=== PATIENT | female | born 1940 | race Caucasian/White ===

== ENCOUNTER 2017-08-04 12:01 | Observation (INO) | payer MEDICARE ==
[2017-08-04] MEDS ORDERED: 0.9 % SODIUM CHLORIDE 1,000 ML BAG IV ONE (12:23)
--- NOTE | 2017-08-04 12:25 | Emergency Department Record ---
History of Present Illness - General Chief Complaint: Syncope Stated Complaint: YASEMIN/COLOR BAD Time Seen by Provider: 08/04/17 12:10 Source: Patient, Family Mode of Arrival: EMS Limitations: No limitations - History of Present Illness Initial Comments: The patient is here due to becoming SOB and weak and almost passing out at a family function 30 minutes ago. Per her family she was well prior and then developed weakness, SOB, became pale and was felt to have a very slow pulse. At that time she felt like she was going to pass out and she was not answering questions well. EMS was called and found the patient hemodynamically stable. Presently she denies any CP, SOB, or SEPULVEDA but just does not feel right. There have been no recent illesses except possibly a mild cold. MD Complaint: Almost passed out Onset/Timin -: Minutes(s) Prodromal Symptoms: Lightheaded, Shortness of breath, Vertigo Injuries Sustained Associated with Event: None Current Symptoms: Other History: Previous syncopal episode Treatments Prior to Arrival: None - Related Data Home Medications Medication Instructions Recorded Confirmed Last Taken Atorvastatin Calcium 40 mg PO QHS 08/04/17 08/04/17 Unknown Enalapril Maleate [Vasotec] 10 mg PO DAILY 08/04/17 08/04/17 Unknown Ergocalciferol (Vitamin D2) 50,000 unit PO WEEKLY 08/04/17 08/04/17 Unknown [Vitamin D2] Glipizide 15 mg PO BID 08/04/17 08/04/17 Unknown Levothyroxine Sodium [Synthroid] 25 mcg PO DAILY 08/04/17 08/04/17 Unknown Metformin HCl 500 mg PO TID 08/04/17 08/04/17 Unknown Omeprazole 20 mg PO DAILY 08/04/17 08/04/17 Unknown Simvastatin [Zocor] 80 mg PO QHS 08/04/17 08/04/17 Unknown Allergies Allergy/AdvReac Type Severity Reaction Status Date / Time codeine Allergy Unknown Unverified 09/14/13 10:08 gabapentin Allergy Unknown Unverified 09/14/13 10:08 Nitrate Analogues Allergy Unknown Unverified 09/14/13 10:08 Allergies: Allergy Unknown Uncoded 09/14/13 10:08 Travel Screening - Travel/Exposure Within Last 30 Days Have you traveled within the last 30 days?: No Review of Systems Constitutional: Denies: Chills, Fever Eyes: Denies: Eye discharge ENT: Reports: Congestion Respiratory: Denies: Cough, Dyspnea Cardiovascular: Denies: Arrhythmia, Chest pain Endocrine: Reports: Fatigue Gastrointestinal: Denies: Abdominal pain Genitourinary: Denies: Dysuria Musculoskeletal: Denies: Arthralgia Past Medical History - SOCIAL HISTORY Smoking Status: Never smoker Alcohol Use: None Drug Use: None - RESPIRATORY Hx Respiratory Disorders: No - CARDIOVASCULAR Hx Cardio Disorders: Yes Hx Edema: Yes (BLE) Hx Hypertension: Yes Comment:: high cholesterol - NEURO Hx Neuro Disorders: Yes Hx Dizziness: Yes (orthostatic hypotension) Hx Headaches: Yes (left adventism) Hx of Migraines: Yes (occular migraines) 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) - GI Hx GI Disorders: Yes Hx Reflux: Yes Comment:: Hx of gastric bypass - Hx Genitourinary Disorders: Yes Hx Bladder Problem: Yes (on ditropan had bladder scan) - ENDOCRINE Hx Endocrine Disorders: Yes Hx Thyroid Disease: Yes - MUSCULOSKELETAL Hx Musculoskeletal Disorders: Yes Hx Arthritis: Yes (RA) Hx Osteoporosis: Yes - PSYCH Hx Psych Problems: Yes Hx Anxiety: Yes Hx Depression: Yes - HEMATOLOGY/ONCOLOGY Hx Hematology/Oncology Disorders: Yes Hx Blood Transfusions: Yes (5+ years ago) Family Medical History Any Significant Family History?: Yes Hx Cancer: Father, Brother/Sister *Cancer Comment: brain, lung Hx Diabetes: Mother Hx Seizures: Brother/Sister Physical Exam - General General Appearance: Alert, Oriented x3, Cooperative, No acute distress - Head Head exam: Atraumatic, Normocephalic - Eye Eye exam: Normal appearance, PERRL, EOMI - ENT Throat exam: Normal inspection. negative: Tonsillar erythema, Tonsillar exudate - Neck Neck exam: Normal inspection, Full ROM. negative: Tenderness - Respiratory Respiratory exam: Normal lung sounds bilaterally. negative: Respiratory distress - Cardiovascular Cardiovascular Exam: Regular rate, Normal rhythm, Normal heart sounds - GI/Abdominal GI/Abdominal exam: Soft, Normal bowel sounds. negative: Tenderness - Extremities Extremities exam: Normal inspection, Full ROM, Normal capillary refill. negative: Tenderness - Neurological Neurological exam: Alert, Oriented X3, Reflexes normal. negative: Altered, Motor sensory deficit Course Vital Signs 08/04/17 12:06 Temperature 98.3 F Pulse Rate 111 H Respiratory 30 H Rate Blood Pressure 181/106 Pulse Ox 100 - Reevaluation(s) Reevaluation #1: The patient is doing very at this time. She denies any CP, SOB, YASEMIN, sweating or headache. I explained to her that her workup is normal at this time but that I feel it is important to monitor her at least overnight. The patient agrees to the plan. I did also discuss the case with Dr. Hunter and he does accept the patient for admission. At this time the patient is A and O x 3 and motor and sensory exams are normal in the upper and lower extremities. She is smiling and pleasant and answering all questions appropriately. 08/04/17 13:31 08/04/17 15:13 Medical Decision Making - Data Complexity MDM Data: Labs Ordered and/or Reviewed, X-Ray Ordered and/or Reviewed, EKG Ordered and/or Reviewed - Lab Data Result diagrams: 08/04/17 12:00 08/04/17 12:00 - EKG Data -: EKG Interpreted by Me EKG: No Acute Changes, Unchanged From Previous - Radiology Data Radiology results: Report reviewed (CXR: Neg Head CT: Neg for any acute changes.) Disposition Disposition: Admit Clinical Impression: Syncope Qualifiers: Syncope type: unspecified Qualified Code(s): R55 - Syncope and collapse Disposition: Still a Patient at [facility] Decision to Admit: Admit from ER Decision to Admit Date: 08/04/17 Decision to Admit Time: 13:43 Accepting Physician: Elsa Time Discussed w/Accepting Physician: 13:43 Condition: (2) Stable Time of Disposition: 13:43 Quality - Quality Measures Quality Measures: N/A - Blood Pressure Screening View Details: Yes Does Patient Have Any of the Following: Active Dx of HTN Blood Pressure Classification: Hypertensive Reading Systolic Measurement: 181 Diastolic Measurement: 106 Screening for High Blood Pressure: Patient Exclusion, Hx of HTN [[id number]]
[2017-08-04 12:28] LABS: BASO % 0.2 % (0-6); EOS % 4.6 % (0-6); GRAN % 63.3 % (47-80); HEMATOCRIT 34.5 % (35.0-47.0); HEMOGLOBIN 10.7 gm/dl (11.6-16.0); LYMPH % 21.9 % (16-45); MEAN CELL VOLUME 95.6 fl (81-97); MEAN CORPUSCULAR HEMOGLOBIN 29.6 pg (27-33); MEAN PLATELET VOLUME 10.3 fl (7.4-10.4); PLATELET COUNT 298 K/uL (130-400); RED BLOOD COUNT 3.61 M/uL (3.80-5.40); RED CELL DISTRIBUTION WIDTH 15.8 % (11.5-14.5); WHITE BLOOD COUNT W/O DIFF 9.7 K/uL (4.2-12.2)
[2017-08-04 12:39] LABS: PARTIAL THROMBOPLASTIN TIME 23.9 SECONDS (24.5-39.1); PROTHROMBIN TIME (PATIENT) 10.3 SECONDS (9.5-12.1)
[2017-08-04 13:03] LABS: BLOOD UREA NITROGEN 27 mg/dL (8-23); CREATININE 1.4 mg/dL (0.5-0.9); EST GLOMERULAR FILTRATION RATE 39 mL/min; GLUCOSE,RANDOM 232 mg/dL (74-109)
[2017-08-04 13:05] LABS: CKMB 1.7 ng/mL (<3.77)
[2017-08-04 13:19] LABS: CREATINE PHOSPHOKINASE 75 U/L (26-192)
[2017-08-04 18:39] LABS: CKMB 1.7 ng/mL (<3.77)
[2017-08-04] MEDS: GLIPIZIDE 5 MG TABLET PO SCH (18:43)
--- NOTE | 2017-08-04 19:28 | RADIOLOGY REPORT ---
EXAM: CHEST 2 VIEWS HISTORY: CHEST PAIN. TECHNIQUE: Frontal and lateral views of the chest. COMPARISON: 11/02/08 chest. FINDINGS: The heart size is normal. Mild ectasia thoracic aorta. Surgical clips left upper quadrant. Osteopenia. Lungs are clear. No pneumothorax. IMPRESSION: NO ACUTE CARDIOPULMONARY PROCESS. JOB NUMBER: [id number] MTDD
[2017-08-04] MEDS ORDERED: ENOXAPARIN 30 MG/0.3 ML SYR SQ SCH (19:30)
--- NOTE | 2017-08-04 19:31 | CT SCAN REPORT ---
EXAM: CT SCAN HEAD WO CONTRAST HISTORY: WEAKNESS. TECHNIQUE: CT brain without. COMPARISON: None. FINDINGS: The globes are intact. Left sphenoid sinusitis. No displaced or depressed skull fracture. No intra or extraaxial hemorrhage. CT is limited for the evaluation of acute infarct. No CT evidence for large or territorial acute infarct. No mass or midline shift. Age-appropriate atrophy. Small vessel ischemic change. Dural-based calcifications. 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 LEFT SPHENOID SINUSITIS. JOB NUMBER: [id number] [facility]
[2017-08-04] MEDS: ENALAPRIL 5 MG TABLET PO SCH ×2 (20:35→23:54)
[2017-08-04] MEDS: SIMVASTATIN 20 MG TABLET PO SCH ×2 (20:36→23:54)
[2017-08-04] MEDS: LOPERAMIDE 2 MG CAPSULE PO PRN (20:48)
[2017-08-04] MEDS ORDERED: Non-Formulary MISC (Atorvastatin Calcium [Atorvastatin Calcium] 40 MG) PO SCH (22:00)
[2017-08-05] MEDS: ACETAMINOPHEN 325 MG TAB PO PRN ×3 (02:37→14:32)
[2017-08-05] MEDS: LOPERAMIDE 2 MG CAPSULE PO PRN (03:54)
[2017-08-05 06:49] LABS: BASO % 0.1 % (0-6); EOS % 4.8 % (0-6); GRAN % 60.2 % (47-80); HEMOGLOBIN 8.4 gm/dl (11.6-16.0); LYMPH % 25.1 % (16-45); MEAN CELL VOLUME 96.6 fl (81-97); MEAN PLATELET VOLUME 9.6 fl (7.4-10.4); MONO % 9.8 % (0-9); PLATELET COUNT 254 K/uL (130-400); RED CELL DISTRIBUTION WIDTH 15.6 % (11.5-14.5); WHITE BLOOD COUNT W/O DIFF 6.8 K/uL (4.2-12.2)
[2017-08-05 06:51] LABS: MEAN CORPUSCULAR HEMOGLOBIN 28.9 pg (27-33)
[2017-08-05] MEDS ORDERED: LEVOTHYROXINE SODIUM 25 MCG TABLET PO SCH (07:00)
[2017-08-05] MEDS ORDERED: PANTOPRAZOLE SODIUM 40 MG TABLET PO SCH (07:00)
[2017-08-05 07:03] LABS: BLOOD UREA NITROGEN 28 mg/dL (8-23); CREATININE 1.3 mg/dL (0.5-0.9); EST GLOMERULAR FILTRATION RATE 42 mL/min; GLUCOSE,RANDOM 143 mg/dL (74-109)
[2017-08-05 07:09] LABS: CKMB 1.4 ng/mL (<3.77)
[2017-08-05] MEDS ORDERED: PATIENT OWN MED: OMEPRAZOLE 20 MG PO SCH (09:30)
[2017-08-05] MEDS ORDERED: PATIENT OWN MED: LEVOTHYROXINE 25 MCG PO SCH (09:30)
[2017-08-05] MEDS ORDERED: ENALAPRIL 5 MG TABLET PO SCH (10:00)
[2017-08-05 10:15] LABS: FERRITIN 46.06 ng/mL (13-150)
[2017-08-05] MEDS: GLIPIZIDE 5 MG TABLET PO SCH (14:04)
[2017-08-05 14:27] LABS: HEMATOCRIT 28.4 % (35.0-47.0); HEMOGLOBIN 8.5 gm/dl (11.6-16.0)
--- NOTE | 2017-08-05 14:58 | Discharge Note ---
VTE H&P Assessment - Risk for VTE Risk for VTE: Yes Risk Level: Very Low Risk Assessment Date: 08/04/17 Risk Assessment Time: 16:00 VTE Orders Placed or Will Be Placed: Yes VTE Reason for No Prophylaxis: Contraindicated Discharge Medications - Discharge Medications Prescriptions: Ascorbic Acid [Vitamin C] 1,000 mg PO DAILY #100 tab Ferrous Sulfate [Iron] 325 mg PO DAILY #100 tablet Home Medications: Ambulatory Orders Atorvastatin Calcium 40 mg PO QHS 08/04/17 [Last Taken Unknown] Enalapril Maleate [Vasotec] 10 mg PO DAILY 08/04/17 [Last Taken Unknown] Ergocalciferol (Vitamin D2) [Vitamin D2] 50,000 unit PO WEEKLY 08/04/17 [Last Taken Unknown] Glipizide 15 mg PO BID 08/04/17 [Last Taken Unknown] Levothyroxine Sodium [Synthroid] 25 mcg PO DAILY 08/04/17 [Last Taken Unknown] Metformin HCl 500 mg PO TID 08/04/17 [Last Taken Unknown] Omeprazole 20 mg PO DAILY 08/04/17 [Last Taken Unknown] Ascorbic Acid [Vitamin C] 1,000 mg PO DAILY #100 tab 08/05/17 [Last Taken Unknown] Ferrous Sulfate [Iron] 325 mg PO DAILY #100 tablet 08/05/17 [Last Taken Unknown] Discharge Note - Date Date of Discharge Note: 08/05/17 Disposition: Home, Self-Care Condition: (1) Good Additional Instructions: Specialty clinic will call you tomorrow with instructions for your outpatient EGD and Colonoscopy. follow up with DR. Hunter in 7 days next august 12 please wear a holter monitor for 24 hours will schedule outpatient to See GI for EGD and colonoscopy start ferrous sulfate 325 mg once a day start vit c 1000 once aday Referrals: Carloz Hunter D.O. [Primary Care Provider] - Forms: Patient Portal Access Activity at Discharge: Increase Activity as Tolerated Diet at Discharge: Diabetic Diet
[2017-08-05] MEDS ORDERED: FERROUS SULFATE 325 MG TAB PO SCH (15:15)
[2017-08-05] MEDS ORDERED: ASCORBIC ACID 500 MG TAB PO SCH (15:15)
[2017-08-05] MEDS ORDERED: SIMVASTATIN 80 MG PO SCH (22:00)
[2017-08-05] MEDS ORDERED: ENALAPRIL 10 MG PO SCH (22:00)
--- NOTE | 2017-08-06 07:10 | History and Physical Report ---
DATE: 08/04/2017 CHIEF COMPLAINT: Near syncope. HISTORY OF PRESENT ILLNESS: This 76-year-old female was getting ready to eat breakfast on Saturday morning about 11 or 10 o'clock in the morning. They were praying. She got lightheadedness, dizzy, almost passed out from a sitting position. EMS was called. She never lost consciousness. She was transported to the hospital in stable vital conditions. Her sugar was checked by EMS which was okay and she was evaluated by Dr. Escalona and she was at her baseline. Dr. Escalona was concerned about a cardiac arrhythmia and put her in the hospital for serial cardiac enzymes and EKG. The cardiac enzymes have been negative. However, hemoglobin dropped to 8.4 from 10.7 and she did have a low sugar reaction of about 50 last night about 2 a.m. Had crackers and it came up to 117. She has had 3 bouts of diarrhea since she got into the hospital here. This may be a vasovagal syncope from diarrhea. However, with the dropping hemoglobin, I checked her stool for blood this morning. Will obtain a GI consult. PAST MEDICAL HISTORY: Diabetes mellitus type 2, hypercholesterolemia, GERD, hypothyroidism. PAST SURGICAL HISTORY: Gastric bypass in 1982, partial hysterectomy, abdominoplasty, left eye symptoms, EGD, colonoscopy, bladder sling in the past. MEDICATIONS: 1. Metformin 500 mg t.i.d. 2. Glipizide 15 mg b.i.d. 3. Omeprazole 20 mg daily. 4. Simvastatin 80 mg at h.s. 5. Vitamin D3, 50,000 units weekly. 6. Enalapril 10 mg daily. 7. Atorvastatin 40 mg at h.s. 8. Levothyroxine 25 mcg daily. There is some confusion in her medication because she has 2 cholesterol medications which I do not think is what she is taking right now. We will pull her medication sheets from the office. ALLERGIES: CODEINE, GABAPENTIN, NITRATE ANALOGS. FAMILY/PSYCHOSOCIAL HISTORY: Unremarkable. Never smoked. No alcohol or drug use. REVIEW OF SYSTEMS: HEENT: No upper respiratory infection symptoms, cough, cold, or congestion. Cardiovascular: No chest pain, palpitations, or arrhythmia. Respiratory: No cough, cold, or congestion. Gastrointestinal: She has had 3 bouts of diarrhea since admission to the hospital. She does have some left-sided abdominal pain. No vomiting. Genitourinary: No dysuria, hematuria, frequency, or burning on urination. Musculoskeletal: No joint or bone abnormalities. She has arthritis in multiple joints. Neurological: No CVA, paralysis, or paresthesias. Gynecological: No lumps in her breasts or abnormal vaginal bleeding. Endocrine: She has diabetes type 2 and hypothyroidism. Integument: No rash, ulcers, change in moles, or yellow skin. PHYSICAL EXAMINATION: VITALS: Height 5 feet, weight 181 pounds. Temperature 98, pulse 76, blood pressure 135/70, respiratory rate 18, pulse ox 95%. HEENT: Pupils are equal, round, and reactive to light and accommodation. Extraocular muscles are intact. Throat is clear. Nose is clear. Tympanic membranes are schmitt. NECK: Supple. No jugular venous distention. No hepatojugular reflux. No carotid bruits. Thyroid is smooth. CARDIOVASCULAR: Regular rate and rhythm without murmurs, clicks, rubs, or gallops. RESPIRATORY: Clear to auscultation and percussion. ABDOMEN: Soft, nontender. Some tenderness in the left side of the abdomen. No rebound or rigidity. EXTREMITIES: No pitting edema. No cyanosis, no clubbing. Full range of motion. Peripheral pulses are good. BREASTS: Deferred. GYNECOLOGICAL: Exam deferred. RECTAL: Brown stool, loose, on examining glove. Hemoccult sent to the lab. GENITALIA: Normal female genitalia. NEUROLOGIC: Cranial nerves II-XII intact. No gross defects. Sensation normal, strength normal. Deep tendon reflexes equal bilaterally with Babinski negative. MENTAL STATUS: Alert and oriented x3. IMPRESSION: 1. Near syncope. 2. Anemia. 3. Diabetes mellitus type 2. 4. Hypothyroidism. 5. History of gastroesophageal reflux disease. 6. History of gastric bypass Lauren-en-Y surgery. PLAN: GI consult. Stop the glipizide. Serial hemoglobin and hematocrit. Will repeat the hemoglobin and hematocrit at 2 p.m. Will discuss the case with Dr. Herman. [place]
--- NOTE | 2017-08-07 13:10 | Discharge Summary ---
DATE: 08/05/2017 DISCHARGE DIAGNOSES: 1. Near syncope. 2. 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 3. Diabetes mellitus type 2. 4. Hypothyroidism. 5. History of gastroesophageal reflux disease. 6. History of gastric bypass Lauren-en-Y surgery. ATTENDING PHYSICIAN: Carloz Hunter DO REASON FOR HOSPITALIZATION: Near syncope. This 76-year-old female was getting ready to eat breakfast on Saturday morning at about 11 a.m. She was praying before breakfast. She got lightheaded, dizzy, almost passed out from the sitting position. EMS was called. She never lost consciousness. She was transferred to the hospital in stable condition. Vitals were good. Her sugar was checked by EMS and it was okay. She was evaluated in the emergency department by Dr. Escalona and was admitted to the hospital to rule out cardiac arrhythmias and serial EKGs, serial cardiac enzymes. Cardiac enzymes were all negative. SIGNIFICANT FINDINGS: Her hemoglobin dropped down to 8.4 the next morning, remaining about the same at 8.5 prior to discharge at 2 p.m. from 10.7 in the emergency department. Her blood sugar dropped down to 50 at 2 a.m. during the night. She had crackers and juice and it came up to 117. She also had 3 bouts of diarrhea during the night while in the hospital. This very well could be a vasovagal syncopal reaction; however, with her drop in hemoglobin, I wanted to discuss the case with GI. Hemoccult of her stool was negative. Chest x-ray with no acute cardiopulmonary process. Head CT with age-appropriate atrophy with small-vessel ischemic changes, left sphenoid sinusitis. 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 Initially the hemoglobin was 10.7 and went to 8.4, repeat at 2 p.m. was 8.5. Her WBC was 6800, platelet count 254,000. Potassium 4.7, sodium 139, chloride 105, BUN 28, creatinine 1.3, glucose was running 163, 149, 171. Iron was low at 24. Total iron binding capacity 254. The percent saturation was low at 9%. Ferritin was 46. Cardiac enzymes x3 time points were negative. Folate was normal and so was B12 normal. Occult stool was negative. Phone consultation with Dr. Herman who felt because of the negative Hemoccult and gastric Lauren-en-Y surgery and the patient ate breakfast, he felt that an outpatient EGD and colonoscopy wound be longoria to schedule rather than putting her through the risk of having as aspiration and that the patient is stable with her hemoglobin and most likely she is anemic because of the iron deficiency and poor absorption of the iron because of her Lauren-en-Y surgery 35 years ago. We will start iron therapy and schedule an outpatient EGD and colonoscopy as soon as possible. HOSPITAL COURSE: The patient is feeling much better. No other symptoms of near syncope. She is ambulating around the room. A Holter monitor for outpatient basis was placed on the patient and the patient will be discharged home to follow up in 1 week in my office. DISCHARGE INSTRUCTIONS: Follow up in 1 week on Saturday. Follow up with GI as scheduled for an EGD and colonoscopy. Holter monitor for 24 hours. Continue her home medications and will add ferrous sulfate 325 once a day, vitamin C 1000 mg daily. Her home medications are atorvastatin 40 mg daily, enalapril (Vasotec) 10 mg once a day, vitamin D3 at 50,000 units weekly, glipizide 15 mg b.i.d., levothyroxine 25 mcg daily, metformin 500 mg 2 in the morning and 1 at night, omeprazole 20 mg a day. Activity as tolerated. MTDD
--- NOTE | 2017-08-08 12:37 | Holter Monitor Report ---
DATE: 08/05/2017 A 3-channel 24-hour Holter was reviewed. The basic underlying heart rhythm was normal sinus. The average heart rate was 85 beats per minute. The patient had no pauses greater than 2 seconds. He had no ventricular ectopic beats noted, and 55 supraventricular beats were noted. This occurred between 7-8 p.m. on Saturday. During that time, 18 supraventricular beats were appreciated. At 4:22, the patient did have a short run of sinus tachycardia. No activity was noted on the diary. At 4:30 on Saturday, the patient had a short run of 7 beats of atrial tachycardia. The heart rate was 124, again asymptomatic. SUMMARY: The basic 24-hour Holter was done when the patient was completely asymptomatic. There were no PVCs. There were no long pauses. The patient had few supraventricular beats and did have one 7-beat run at a heart rate of 120 beats per minute. MTDD
== END 2017-08-05 16:28 | disposition home or self-care (01) ==
LOC: ER 12:01 → MEDSURG 14:18
PROVIDERS: ADMIT Emergency Medicine; ATTEND Emergency Medicine
DX: R55 Syncope and collapse (principal); D63.8 Anemia in other chronic diseases classified elsewhere; E11.9 Type 2 diabetes mellitus without complications; Z79.84 Long term (current) use of oral hypoglycemic drugs; R06.02 Shortness of breath; I10 Essential (primary) hypertension; I95.1 Orthostatic hypotension; E78.00 Pure hypercholesterolemia, unspecified; R60.0 Localized edema; G57.91 Unspecified mononeuropathy of right lower limb; E03.9 Hypothyroidism, unspecified; M06.9 Rheumatoid arthritis, unspecified; F41.8 Other specified anxiety disorders; K21.9 Gastro-esophageal reflux disease without esophagitis; Z98.84 Bariatric surgery status
CPT/HCPCS: 99285 ×2; 82550; 83550; 85025 ×2; 85018; 85014; 85730; 85610; 82553 ×2; 80048 ×2; 36416; 82728; 82948; 82607; 82746; 82272; 84484 ×2; 71046; 70450; 94760 ×2; 93005 ×2; 93225; 93226; 93010; G0378 ×2; J1650; J7030

== ENCOUNTER 2017-12-19 12:11 | Observation (INO) | payer MEDICARE ==
[2017-12-19 13:33] LABS: BILIRUBIN,TOTAL 0.2 mg/dL (0.2-1.0); CREATININE 2.3 mg/dL (0.5-0.9)
[2017-12-19 13:38] LABS: ALB/GLOB RATIO 1.3 (1.1-1.8)
[2017-12-19 13:42] LABS: BASO % 0.1 % (0-6); EOS % 1.8 % (0-6); GRAN % 72.6 % (47-80); HEMATOCRIT 37.2 % (35.0-47.0); HEMOGLOBIN 11.8 gm/dl (11.6-16.0); LYMPH % 17.8 % (16-45); MEAN CELL VOLUME 95.9 fl (81-97); MEAN CORPUSCULAR HEMOGLOBIN 30.4 pg (27-33); MEAN CORPUSCULAR HGB CONC 31.7 g/dl (32-36); MONO % 7.7 % (0-9); PLATELET COUNT 257 K/uL (130-400); RED BLOOD COUNT 3.88 M/uL (3.80-5.40); RED CELL DISTRIBUTION WIDTH 14.9 % (11.5-14.5); WHITE BLOOD COUNT W/O DIFF 8.2 K/uL (4.2-12.2)
--- NOTE | 2017-12-19 14:10 | Emergency Department Record ---
History of Present Illness - General Chief complaint: Hypogylcemia Stated complaint: LOW BLOOD SUGAR Time Seen by Provider: 12/19/17 12:58 Source: Patient, EMS Mode of Arrival: EMS Limitations: No limitations - History of Present Illness Initial comments: pt brought in by ems after bs found to be low. pt given amp of d-50 and feels better. she states this happened to her in september also and she passed out. Complaint: Generalized weakness Onset/Timin -: Days(s) Location: Generalized Consistency: Now resolved Associated Symptoms: Denies other symptoms - [place] Coma Scale Eye Response: (4) Open spontaneously Motor Response: (6) Obeys commands Verbal Response: (5) Oriented Acme Total: 15 - Related Data Previous Rx's Medication Instructions Recorded Ascorbic Acid [Vitamin C] 1,000 mg PO DAILY #100 tab 08/05/17 Ferrous Sulfate [Iron] 325 mg PO DAILY #100 tablet 08/05/17 Allergies Allergy/AdvReac Type Severity Reaction Status Date / Time codeine Allergy Unknown PT UNSURE Verified 12/19/17 12:45 OF REACTION gabapentin Allergy Unknown PT UNSURE Verified 12/19/17 12:45 OF REACTION Nitrate Analogues Allergy Unknown PT UNSURE Verified 12/19/17 12:45 OF REACTION Allergies: Allergy Unknown PT UNSURE Uncoded 12/19/17 12:44 OF REACTION Travel Screening - Travel/Exposure Within Last 30 Days Have you traveled within the last 30 days?: No - Travel/Exposure Within Last Year Have you traveled outside the [place] in the last year?: No - Additonal Travel Details Have you been exposed to anyone with a communicable illness?: No - Travel Symptoms Symptom Screening: None Review of Systems Reviewed: No additional complaints except as noted below Constitutional: Reports: As per HPI. Denies: Chills, Fever, Malaise, Night sweats, Weakness, Weight change Eyes: Reports: As per HPI. Denies: Eye discharge, Eye pain, Photophobia, Vision change ENT: Reports: As per HPI. Denies: Congestion, Dental pain, Ear pain, Epistaxis , Hearing loss, Throat pain Respiratory: Reports: As per HPI. Denies: Cough, Dyspnea, Hemoptysis, Stridor, Wheezes Cardiovascular: Reports: As per HPI. Denies: Arrhythmia, Chest pain, Dyspnea on exertion, Edema, Murmurs, Orthopnea, Palpitations, Paroxysmal nocturnal dyspnea, Rheumatic Fever, Syncope Endocrine: Reports: As per HPI. Denies: Fatigue, Heat or cold intolerance, Polydipsia, Polyuria Gastrointestinal: Reports: As per HPI. Denies: Abdominal pain, Constipation, Diarrhea, Hematemesis, Hematochezia, Melena, Nausea, Vomiting Genitourinary: Reports: As per HPI. Denies: Abnormal menses, Discharge, Dyspareunia, Dysuria, Frequency, Hematuria, Incontinence, Retention, Urgency Musculoskeletal: Reports: As per HPI. Denies: Arthralgia, Back pain, Gout, Joint swelling, Myalgia, Neck pain Skin: Reports: As per HPI. Denies: Bruising, Change in color, Change in hair/ nails, Lesions, Pruritus, Rash Neurological: Reports: As per HPI. Denies: Abnormal gait, Confusion, Headache, Numbness, Paresthesias, Seizure, Tingling, Tremors, Vertigo, Weakness Psychiatric: Reports: As per HPI. Denies: Anxiety, Auditory hallucinations, Depression, Homicidal thoughts, Suicidal thoughts, Visual hallucinations Hematological/Lymphatic: Reports: As per HPI. 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) Comment:: recently passed out 08/04/17, was in hospital overnight- discovered low hgb - GI Hx GI Disorders: Yes Hx Abdominal Pain: Yes (4 years) Hx Reflux: Yes Hx Nausea/Vomiting: Yes (at times) Hx of Polyps: Yes Comment:: Hx of gastric bypass, diarrhea has improved since stopping neurontin - Hx Genitourinary Disorders: Yes Hx Bladder Problem: Yes (frequent urination) - ENDOCRINE Hx Endocrine Disorders: Yes Hx Diabetes: Yes Hx Thyroid Disease: Yes - MUSCULOSKELETAL Hx Musculoskeletal Disorders: Yes Hx Arthritis: Yes (RA) Hx Osteoporosis: Yes Comment:: muscle cramps in legs at night at times - PSYCH Hx Psych Problems: Yes Hx Anxiety: Yes Hx Depression: Yes - HEMATOLOGY/ONCOLOGY Hx Hematology/Oncology Disorders: Yes Hx Unexplained Bleeding: Yes (blood in stool few years ago) Hx Blood Transfusions: Yes (08/04/17) Hx Blood Transfusion Reaction: No Comment:: currently low HGB Family Medical History Any Significant Family History?: Yes Hx Cancer: Father, Mother *Cancer Comment: brain, lung Hx Diabetes: Father, Mother, Brother/Sister, Grandparents Hx Heart Disease: Brother/Sister Hx Seizures: Children *Seizure Comment: son Physical Exam - General General Appearance: Alert, Oriented x3, Cooperative, Mild distress - Head Head exam: Normal inspection - Eye Eye exam: Normal appearance, PERRL, EOMI Pupils: Normal accommodation - ENT ENT exam: Normal exam, Mucous membranes moist, Normal external ear exam, Normal orophraynx Ear exam: Normal external inspection. negative: External canal tenderness Nasal Exam: Normal inspection. negative: Discharge, Sinus tenderness Mouth exam: Normal external inspection, Tongue normal Teeth exam: Normal inspection. negative: Dental caries Throat exam: Normal inspection. negative: Tonsillar erythema, Tonsillar exudate - Neck Neck exam: Normal inspection, Full ROM. negative: Tenderness - Respiratory Respiratory exam: Normal lung sounds bilaterally. negative: Respiratory distress - Cardiovascular Cardiovascular Exam: Regular rate, Normal rhythm, Normal heart sounds - GI/Abdominal GI/Abdominal exam: Soft, Normal bowel sounds. negative: Tenderness - Rectal Rectal exam: Deferred - exam: Deferred - Extremities Extremities exam: Normal inspection, Full ROM, Normal capillary refill. negative: Tenderness - Back Back exam: Reports: Normal inspection, Full ROM. Denies: Muscle spasm, Rash noted, Tenderness - Neurological Neurological exam: Alert, CN II-XII intact, Normal gait, Oriented X3 - Psychiatric Psychiatric exam: Normal affect, Normal mood - Skin Skin exam: Dry, Intact, Normal color, Warm Course Vital Signs 12/19/17 12/19/17 13:11 14:00 Pulse Rate 80 Pulse Rate [ 99 H Pulse Ox Probe] Respiratory 20 18 Rate Blood Pressure 141/69 Blood Pressure 118/45 [Left Arm] Pulse Ox 97 97 Medical Decision Making - Lab Data Result diagrams: 12/19/17 11:26 12/19/17 11:26 Lab Results 12/19/17 12/19/17 Range/Units 11:26 11:26 WBC 8.2 (4.2-12.2) K/uL RBC 3.88 (3.80-5.40) M/uL Hgb 11.8 (11.6-16.0) gm/dl Hct 37.2 (35.0-47.0) % MCV 95.9 (81-97) fl MCH 30.4 (27-33) pg MCHC 31.7 L (32-36) g/dl RDW 14.9 H (11.5-14.5) % Plt Count 257 (130-400) K/uL MPV 10.0 (7.4-10.4) fl Gran % 72.6 (47-80) % Lymphocytes % 17.8 (16-45) % Monocytes % 7.7 (0-9) % Eosinophils % 1.8 (0-6) % Basophils % 0.1 (0-6) % Sodium 141 (136-145) mmol/L Potassium 4.9 H (3.4-4.5) mmol/L Chloride 103 (98-107) mmol/L Carbon Dioxide 20.0 L (22-29) mmol/L Anion Gap 18.0 H (7-16) BUN 34 H (8-23) mg/dL Creatinine 2.3 H (0.5-0.9) mg/dL Estimated GFR 22 mL/min Random Glucose 30 L* (74-109) mg/dL Calcium 9.2 (8.8-10.2) mg/dL Total Bilirubin 0.20 (0.2-1.0) mg/dL AST 15 (10.0-35.0) U/L ALT 10 (<33) U/L Alkaline Phosphatase 63 (35-104) U/L Total Protein 7.0 (6.6-8.7) g/dL Albumin 4.0 (4.0-5.0) g/dL Globulin 3.0 (1.4-4.8) gm/dL Albumin/Globulin Ratio 1.3 (1.1-1.8) Disposition Disposition: Admit Clinical Impression: Hypoglycemia, Renal insufficiency Vomiting Qualifiers: Vomiting type: unspecified Vomiting Intractability: non-intractable Nausea presence: with nausea Qualified Code(s): R11.2 - Nausea with vomiting, unspecified Disposition: Still a Patient at [facility] Decision to Admit: Admit from ER Decision to Admit Date: 12/19/17 Decision to Admit Time: 14:19 Forms: Patient Portal Access Quality - Quality Measures Quality Measures: N/A - Blood Pressure Screening Does Patient Have Any of the Following: No Blood Pressure Classification: Hypertensive Reading Systolic Measurement: 141 Diastolic Measurement: 69 Screening for High Blood Pressure: < First Hypertensive BP, F/U Documented > [ [id number]] First Hypertensive Follow-up Interventions: Follow-up with rescreen GT 1 day and LT 4 weeks.
[2017-12-19] MEDS ORDERED: ONDANSETRON HCL IV 4 MG/2 ML VIAL IVP PRN (15:30)
[2017-12-19] MEDS ORDERED: ACETAMINOPHEN 325 MG TAB PO PRN (15:30)
[2017-12-19 19:05] LABS: URINE APPEARANCE CLEAR; URINE BILIRUBIN NEGATIVE (NEGATIVE); URINE BLOOD NEGATIVE (NEGATIVE); URINE COLOR YELLOW; URINE GLUCOSE (UA) NEGATIVE (NEGATIVE); URINE KETONE NEGATIVE (NEGATIVE); URINE LEUKOCYTE ESTERASE SMALL (NEGATIVE); URINE NITRITE NEGATIVE (NEGATIVE); URINE PROTEIN NEGATIVE (NEGATIVE); URINE UROBILINOGEN 0.2 E.U./dL (0.20 - 1.00)
[2017-12-19 19:24] LABS: URINE EPITHELIAL CELLS 0 - 2 (FEW)
[2017-12-19] MEDS ORDERED: Non-Formulary MISC (Atorvastatin Calcium [Atorvastatin Calcium] 40 MG) PO SCH (22:00)
[2017-12-19] MEDS ORDERED: DIPHENHYDRAMINE HCL 25 MG CAPSULE PO PRN (22:00)
[2017-12-20] MEDS ORDERED: PANTOPRAZOLE SODIUM 40 MG TABLET PO SCH (07:00)
[2017-12-20] MEDS ORDERED: LEVOTHYROXINE SODIUM 25 MCG TABLET PO SCH (07:00)
[2017-12-20] MEDS ORDERED: ENALAPRIL 5 MG TABLET PO SCH (10:00)
[2017-12-20] MEDS ORDERED: ENOXAPARIN 30 MG/0.3 ML SYR SQ SCH (10:00)
[2017-12-20] MEDS ORDERED: METFORMIN 500 MG TABLET PO ONE (10:20)
--- NOTE | 2017-12-20 11:01 | History and Physical Report ---
DATE: 12/19/2017 CHIEF COMPLAINT: Hypoglycemia. HISTORY OF PRESENT ILLNESS: This 77-year-old female was brought in by EMS because of a low sugar reaction. She was confused and not responding appropriately. She was given an amp of D50 and her sugar came up nicely. She is acting appropriately. She lately had 2 courses of Levaquin by the urologist for chronic UTI and was having some problems with nausea and vomiting with that. This may have caused her to not eat as much as she normally eats and may be an etiology for her low sugar. Also, her renal condition is getting worse and she may not be clearing the medications as much as she was before. PAST MEDICAL HISTORY: Diabetes mellitus type 2, renal insufficiency, hypercholesterolemia, GERD, gastric bypass, frequent urinations, hypothyroidism, arthritis, anxiety and depression. PAST SURGICAL HISTORY: Gastric bypass in 1982, partial hysterectomy, abdominoplasty, left eye surgery, colonoscopy, and a bladder sling. MEDICATIONS: 1. Loratadine 10 mg daily. 2. Metformin 1000 mg b.i.d. 3. Omeprazole 20 mg daily. 4. Levothyroxine 25 mcg daily. 5. Glipizide 15 mg b.i.d. 6. Enalapril 10 mg daily. ALLERGIES: CODEINE, GABAPENTIN, NITRATE ANALOGS. FAMILY/PSYCHOSOCIAL HISTORY: Cancer in mother and father, brain and lung. Diabetes for father, mother, brother, sister, grandparents. Heart sister in brother, sister, and other children. Son has seizures. Lives with family. REVIEW OF SYSTEMS: HEENT: No upper respiratory infection symptoms, cough, cold, or congestion. Cardiovascular: No chest pain, palpitations, or arrhythmia. Respiratory: No cough, cold, or congestion. Gastrointestinal: No nausea, vomiting, diarrhea, black stools, or bloody stools. Musculoskeletal: No joint or bone abnormalities. Neurological: No CVA, paralysis, or paresthesias. Genitourinary: She does have frequent urination and is being worked up by Urology. [employer]: No lumps in her breasts or abnormal vaginal bleeding. Endocrine: She has diabetes mellitus and hypothyroidism. Integument: No rash, ulcers, change in moles, or yellow skin. PHYSICAL EXAMINATION: VITALS: Height 5 feet, weight 179 pounds. Temperature 97.5, pulse 89, blood pressure 120/77, respiratory rate 12, pulse ox 96% on room air. HEENT: Pupils are equal, round, and reactive to light and accommodation. Extraocular muscles are intact. Throat is clear. Nose is clear. Tympanic membranes are schmitt. NECK: Supple. No jugular venous distention. No hepatojugular reflux. No carotid bruits. Thyroid is smooth. CARDIOVASCULAR: Regular rate and rhythm without murmurs, clicks, rubs, or gallops. RESPIRATORY: Clear to auscultation and percussion. ABDOMEN: Soft, nontender. No hepatosplenomegaly, no masses, no tenderness. Bowel sounds are active. No bruits. EXTREMITIES: No pitting edema. No cyanosis, no clubbing. Full range of motion. Peripheral pulses are good. BREASTS: Exam deferred. GYNECOLOGICAL: Exam deferred. RECTAL: Exam deferred. NEUROLOGIC: Cranial nerves II-XII intact. No gross defects. Sensation normal, strength normal. Deep tendon reflexes equal bilaterally with Babinski negative. MENTAL STATUS: Alert and oriented x3. IMPRESSION: 1. Hypoglycemic event with diabetes mellitus type 2. 2. Renal insufficiency. 3. Frequent urination. Being worked up by Urology. 4. Recent use of Levaquin causing her to be nauseated and vomiting and probably not eat as much as she normally eats. PLAN: Check the Accu-Chek. We will possibly back off on her diabetic medications; however, the hemoglobin A1c was tending to run high. MTDD
--- NOTE | 2017-12-20 13:05 | Discharge Note ---
VTE H&P Assessment - Risk for VTE Risk for VTE: Yes Risk Level: Moderate Risk Assessment Date: 12/19/17 Risk Assessment Time: 16:00 VTE Orders Placed or Will Be Placed: Yes Discharge Medications - Discharge Medications Prescriptions: Glipizide 5 mg PO DAILY #30 tablet Metformin HCl 500 mg PO DAILY #30 tablet Home Medications: Ambulatory Orders Enalapril Maleate [Vasotec] 10 mg PO DAILY 08/04/17 [Last Taken 12/19/17] Levothyroxine Sodium [Synthroid] 25 mcg PO DAILY 08/04/17 [Last Taken 12/19/17] Omeprazole 20 mg PO DAILY PRN 08/04/17 [Last Taken 12/19/17] Loratadine 10 mg PO DAILY PRN 12/19/17 [Last Taken Unknown] Glipizide 5 mg PO DAILY #30 tablet 12/20/17 [Last Taken Unknown] Metformin HCl 500 mg PO DAILY #30 tablet 12/20/17 [Last Taken Unknown] Discharge Note - Date Date of Discharge Note: 12/20/17 Disposition: Home, Self-Care Condition: (1) Good Additional Instructions: follow up with Dr. Hunter at 9am on saturday check sugar three times a day fasting ,before dinner and bedtime and write them down if glucose less than 70 eat a piece of candy Forms: Patient Portal Access Activity at Discharge: Increase Activity as Tolerated Diet at Discharge: Diabetic Diet
--- NOTE | 2017-12-23 12:11 | Discharge Summary ---
DATE OF DISCHARGE: 12/20/2017 Attending physician: Carloz Hunter, DO DISCHARGE DIAGNOSES: 1. Hypoglycemia. 2. Diabetes mellitus type 2. 3. Renal insufficiency. 4. Dysuria with chronic recurring UTI, following up with urology. REASON FOR HOSPITALIZATION: Hypoglycemia. HISTORY: This 77-year-old female was brought in by EMS with low sugar, approximately 30, she was given 1 amp of D50 and came around to herself and she was seen in the emergency department by Dr. Gibson, admitted to the hospital for observation to make sure her sugars didn't go back down. Her oral diabetic medications were stopped. She has been not eating as well because she has been taking Levaquin. She has had 2 courses of Levaquin and it is causing her to be nauseated and she recently has not been eating very well. Her last dose of Levaquin was yesterday on the day of admission. Also, her kidney function has gradually been getting worse. Her creatine on admission was 2.3, BUN is 34. SIGNIFICANT FINDINGS: Her sugars have been stabilized in the normal range. She had a piece of candy today and it went up to 250. THERAPY PROVIDED: We are switching her oral diabetic medications to Metformin 500 mg once a day, Glipizide 5 mg once a day, we will see how that goes, did not want to make her hypoglycemic again in the near future, so we will follow her closely as an outpatient in the office. I will see her in the office on Saturday at 9:00 a.m. HOSPITAL COURSE: Unremarkable. CONDITION ON DISCHARGE: Much improved. DISCHARGE INSTRUCTIONS: Follow up with Dr. Hunter at 9:00 a.m. on Saturday, 12/23. Change the Metformin to 500 mg once a day, Glipizide change to 5 mg once a day, check the glucose 3 times a day before eating anything in the morning, fasting, before the 3rd meal of the day and before dinner. If she wants to check it any other time p.r.n. that would be fine, too, if she thinks her sugars are low. If it is lower than 70, I asked her to eat a piece of candy, and any other problems follow up with the emergency department sooner. [place]
== END 2017-12-20 14:05 | disposition home or self-care (01) ==
LOC: ER 12:11 → MEDSURG 15:07
PROVIDERS: ADMIT Emergency Medicine; ATTEND Emergency Medicine
DX: E16.2 Hypoglycemia, unspecified (principal); R11.2 Nausea with vomiting, unspecified; N28.9 Disorder of kidney and ureter, unspecified; I10 Essential (primary) hypertension; E78.00 Pure hypercholesterolemia, unspecified; I95.9 Hypotension, unspecified; G62.9 Polyneuropathy, unspecified; E11.9 Type 2 diabetes mellitus without complications; M06.9 Rheumatoid arthritis, unspecified
CPT/HCPCS: 82310; 85025; 80053; 36416 ×2; 81001; 82948 ×2; G0378 ×2; 99285; J1650

== ENCOUNTER 2018-03-21 12:32 | Inpatient (IN) | payer MEDICARE ==
--- NOTE | 2018-03-21 12:50 | Emergency Department Record ---
History of Present Illness - General Chief Complaint: Cough Stated Complaint: COUGH, FEVER Time Seen by Provider: 03/21/18 12:47 Source: Patient, Family Mode of Arrival: Wheelchair - History of Present Illness Initial Comments: The patient was wheeled in a wheelchair from her car in the parking lot, due to generalized weakness. The patient states that she has had a cough, congestion and shortness of breath with yellow productive sputum. She states she felt tightness in her chest, but it improved partially with a breathing treatment. She is a Type 2 diabetic. She self-caths daily. She has She denies history of pneumonia, OR, stroke. There were house guests in their home for [place]ie who may have caused her to catch something infectious, but she is uncertain. Family report that she has not been able to ambulate in a steady fashion for the past 2-3 days since she began coughing on 03-17-18. The patient is a poor historian. MD Complaint: Cough, Nasal congestion - Related Data Home Medications Medication Instructions Recorded Confirmed Last Taken Aspirin [Aspir-Low] 81 mg PO DAILY 03/21/18 03/21/18 Unknown Atorvastatin Calcium 40 mg PO QHS 03/21/18 03/21/18 Unknown Biotin 5 mg PO DAILY 03/21/18 03/21/18 Unknown Cyanocobalamin (Vitamin B-12) 1,000 mcg PO DAILY 03/21/18 03/21/18 Unknown [Vitamin B-12] Diltiazem HCl [Diltiazem ER] 120 mg PO DAILY 03/21/18 03/21/18 Unknown Gabapentin [Neurontin] 100 mg PO DAILY 03/21/18 03/21/18 Unknown Glipizide 10 mg PO DAILY 03/21/18 03/21/18 Unknown Hydroxyzine HCl 25 mg PO Q6H PRN 03/21/18 03/21/18 Unknown Sitagliptin Phosphate [Januvia] 25 mg PO DAILY 03/21/18 03/21/18 Unknown Allergies Allergy/AdvReac Type Severity Reaction Status Date / Time codeine Allergy Unknown PT UNSURE Verified 12/19/17 12:45 OF REACTION gabapentin Allergy Unknown PT UNSURE Verified 12/19/17 12:45 OF REACTION Nitrate Analogues Allergy Unknown PT UNSURE Verified 12/19/17 12:45 OF REACTION Allergies: Allergy Unknown PT UNSURE Uncoded 12/19/17 12:44 OF REACTION Review of Systems Reviewed: No additional complaints except as noted below Constitutional: Reports: As per HPI. Denies: Chills, Fever, Malaise, Night sweats, Weakness, Weight change Eyes: Reports: As per HPI. Denies: Eye discharge, Eye pain, Photophobia, Vision change ENT: Reports: As per HPI. Denies: Congestion, Dental pain, Ear pain, Epistaxis , Hearing loss, Throat pain Respiratory: Reports: As per HPI. Denies: Cough, Dyspnea, Hemoptysis, Stridor, Wheezes Cardiovascular: Reports: As per HPI. Denies: Arrhythmia, Chest pain, Dyspnea on exertion, Edema, Murmurs, Orthopnea, Palpitations, Paroxysmal nocturnal dyspnea, Rheumatic Fever, Syncope Endocrine: Reports: As per HPI. Denies: Fatigue, Heat or cold intolerance, Polydipsia, Polyuria Gastrointestinal: Reports: As per HPI. Denies: Abdominal pain, Constipation, Diarrhea, Hematemesis, Hematochezia, Melena, Nausea, Vomiting Genitourinary: Reports: As per HPI. Denies: Abnormal menses, Discharge, Dyspareunia, Dysuria, Frequency, Hematuria, Incontinence, Retention, Urgency Musculoskeletal: Reports: As per HPI. Denies: Arthralgia, Back pain, Gout, Joint swelling, Myalgia, Neck pain Skin: Reports: As per HPI. Denies: Bruising, Change in color, Change in hair/ nails, Lesions, Pruritus, Rash Neurological: Reports: As per HPI. Denies: Abnormal gait, Confusion, Headache, Numbness, Paresthesias, Seizure, Tingling, Tremors, Vertigo, Weakness Psychiatric: Reports: As per HPI. Denies: Anxiety, Auditory hallucinations, Depression, Homicidal thoughts, Suicidal thoughts, Visual hallucinations Hematological/Lymphatic: Reports: As per HPI. 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) Comment:: recently passed out 08/04/17, was in hospital overnight- discovered low hgb - GI Hx GI Disorders: Yes Hx Abdominal Pain: Yes (4 years) Hx Reflux: Yes Hx Nausea/Vomiting: Yes (at times) Hx of Polyps: Yes Comment:: Hx of gastric bypass, diarrhea has improved since stopping neurontin - Hx Genitourinary Disorders: Yes Hx Bladder Problem: Yes (frequent urination) Hx Renal Disease: Yes (insufficiency) - ENDOCRINE Hx Endocrine Disorders: Yes Hx Diabetes: Yes Hx Thyroid Disease: Yes - MUSCULOSKELETAL Hx Musculoskeletal Disorders: Yes Hx Arthritis: Yes (RA) Hx Osteoporosis: Yes Comment:: muscle cramps in legs at night at times - PSYCH Hx Psych Problems: Yes Hx Anxiety: Yes Hx Depression: Yes - HEMATOLOGY/ONCOLOGY Hx Hematology/Oncology Disorders: Yes Hx Unexplained Bleeding: Yes (blood in stool few years ago) Hx Blood Transfusions: Yes (08/04/17) Hx Blood Transfusion Reaction: No Comment:: currently low HGB Family Medical History Hx Cancer: Father, Mother *Cancer Comment: brain, lung Hx Diabetes: Father, Mother, Brother/Sister, Grandparents Hx Heart Disease: Brother/Sister Hx Seizures: Children *Seizure Comment: son Physical Exam - General General Appearance: Alert, Oriented x3, Cooperative, Moderate distress (fatigued , weak, edentulous, tearful, needs assistance to get to bathroom) - Head Head exam: Normal inspection - Eye Eye exam: Normal appearance, PERRL Pupils: Normal accommodation - ENT ENT exam: Normal exam, Mucous membranes moist, Normal external ear exam, Normal orophraynx, TM's normal bilaterally Ear exam: Normal external inspection. negative: External canal tenderness Nasal Exam: Normal inspection. negative: Discharge, Sinus tenderness Mouth exam: Normal external inspection, Tongue normal Teeth exam: Normal inspection. negative: Dental caries Throat exam: Normal inspection. negative: Tonsillar erythema, Tonsillar exudate - Neck Neck exam: Normal inspection, Full ROM. negative: Lymphadenopathy, Meningismus , Tenderness - Respiratory Respiratory exam: Normal lung sounds bilaterally, Rhonchi. negative: Respiratory distress - Cardiovascular Cardiovascular Exam: Regular rate, Normal rhythm, Normal heart sounds - GI/Abdominal GI/Abdominal exam: Soft, Normal bowel sounds. negative: Tenderness - Rectal Rectal exam: Deferred - exam: Deferred - Extremities Extremities exam: Normal inspection, Full ROM, Normal capillary refill. negative: Calf tenderness, Pedal edema, Tenderness - Back Back exam: Reports: Normal inspection, Full ROM. Denies: CVA tenderness (R), CVA tenderness (L), Muscle spasm, Rash noted, Tenderness - Neurological Neurological exam: Alert, CN II-XII intact, Oriented X3, Reflexes normal. negative: Motor sensory deficit - Psychiatric Psychiatric exam: Normal affect, Normal mood - Skin Skin exam: Dry, Intact, Normal color, Warm Course - Reevaluation(s) Reevaluation #1: Discussed with Radha N/P long term who accepts patient as OBS, 03/21/18 15:59 Medical Decision Making - Management Options MDM Management: Additional Work-up Planned (e.g. ADM/Transfer/OP Study) - Data Complexity MDM Data: Labs Ordered and/or Reviewed, X-Ray Ordered and/or Reviewed (CXR two View: No acute process per radiologist.), EKG Ordered and/or Reviewed - Lab Data Result diagrams: 03/21/18 13:35 03/21/18 13:35 - EKG Data -: EKG Interpreted by [place] EKG: No Acute Changes (NSR 70/min, IVCD as before, RBBB, LAFB compared with 08-04) Disposition Disposition: Admit Clinical Impression: Chest tightness or pressure Dyspnea Qualifiers: Dyspnea type: acute respiratory distress Qualified Code(s): R06.03 - Acute respiratory distress Disposition: Still a Patient at [facility] Decision to Admit: Admit from ER Decision to Admit Date: 03/21/18 Decision to Admit Time: 16:01 Accepting Physician: CORY Garcia/ Dr. Sosa Time Discussed w/Accepting Physician: 16:02 Condition: (2) Stable Quality - Quality Measures Quality Measures: N/A - Blood Pressure Screening Does Patient Have Any of the Following: No Blood Pressure Classification: Hypertensive Reading Systolic Measurement: 123 Diastolic Measurement: 94 Screening for High Blood Pressure: Patient Exclusion, Hx of HTN [G9744]
[2018-03-21] MEDS ORDERED: IPRATROPIUM/ALBUTEROL (0.5MG/3MG) NEB INH ONE (12:54)
[2018-03-21] MEDS ORDERED: METHYLPREDNISOLONE PF 125MG/VIAL IVP ONE (13:27)
[2018-03-21 13:43] LABS: HEMOGLOBIN 10.2 gm/dl (11.6-16.0); MEAN CORPUSCULAR HEMOGLOBIN 30.9 pg (27-33); MEAN CORPUSCULAR HGB CONC 31.9 g/dl (32-36); MEAN PLATELET VOLUME 9.2 fl (7.4-10.4); PLATELET COUNT 273 K/uL (130-400); RED CELL DISTRIBUTION WIDTH 13.2 % (11.5-14.5); WHITE BLOOD COUNT W/O DIFF 10.8 K/uL (4.2-12.2)
[2018-03-21 13:53] LABS: BILIRUBIN,TOTAL 0.5 mg/dL (0.2-1.0); CREATININE 1.5 mg/dL (0.5-0.9)
[2018-03-21 13:54] LABS: INFLUENZA A NEGATIVE (NEGATIVE); INFLUENZA B NEGATIVE (NEGATIVE); TOTAL PROTEIN 6.5 g/dL (6.6-8.7)
[2018-03-21 13:59] LABS: ALBUMIN 3.3 g/dL (4.0-5.0)
[2018-03-21 14:04] LABS: PLATELET ESTIMATE NORMAL (NORMAL)
[2018-03-21] MEDS ORDERED: FUROSEMIDE IV 40MG/4ML VIAL IVP ONE (15:11)
[2018-03-21 15:52] LABS: URINE APPEARANCE CLOUDY; URINE BILIRUBIN NEGATIVE (NEGATIVE); URINE BLOOD SMALL (NEGATIVE); URINE COLOR YELLOW; URINE KETONE NEGATIVE (NEGATIVE); URINE LEUKOCYTE ESTERASE LARGE (NEGATIVE); URINE NITRITE NEGATIVE (NEGATIVE); URINE PROTEIN TRACE (NEGATIVE); URINE UROBILINOGEN 0.2 E.U./dL (0.20 - 1.00)
[2018-03-21 16:00] LABS: URINE BACTERIA 2+; URINE EPITHELIAL CELLS 0 - 2 (FEW)
[2018-03-21] MEDS ORDERED: HYDROXYZINE PAMOATE 25 MG CAPSULE PO PRN (16:36)
[2018-03-21] MEDS ORDERED: LORATADINE 10 MG TABLET PO PRN (16:36)
[2018-03-21] MEDS ORDERED: ALBUTEROL SULFATE (0.083%) 2.5 MG/3 ML NEB INH SCH (18:00)
[2018-03-21] MEDS: IPRATROPIUM/ALBUTEROL (0.5MG/3MG) NEB INH SCH ×2 (20:28→20:49)
[2018-03-21] MEDS ORDERED: ALBUTEROL SULFATE (0.083%) 2.5 MG/3 ML NEB INH PRN (20:33)
[2018-03-21] MEDS: ATORVASTATIN 20 MG TABLET PO SCH (21:31)
[2018-03-21] MEDS ORDERED: HUMULIN R 100 UNIT/ML VIAL SQ ONE (22:52)
[2018-03-22] MEDS: ACETAMINOPHEN 325 MG TAB PO PRN ×2 (00:34→21:23)
[2018-03-22] MEDS: CEFTRIAXONE SODIUM 1 GM in 0.9 % SODIUM CHLORIDE 100ML 100 ML IVPB SCH ×3 (00:35→22:02)
[2018-03-22] MEDS: AZITHROMYCIN 500 MG TABLET PO SCH ×2 (00:55→09:16)
[2018-03-22] MEDS: IPRATROPIUM/ALBUTEROL (0.5MG/3MG) NEB INH SCH ×6 (05:02→22:11)
[2018-03-22] MEDS: LEVOTHYROXINE SODIUM 25 MCG TABLET PO SCH (06:05)
[2018-03-22] MEDS: DIPHENHYDRAMINE HCL 25 MG CAPSULE PO PRN ×2 (06:12→21:22)
[2018-03-22 06:15] LABS: BASO % 0.1 % (0-6); HEMATOCRIT 33.3 % (35.0-47.0); HEMOGLOBIN 10.8 gm/dl (11.6-16.0); LYMPH % 10.1 % (16-45); MEAN CELL VOLUME 94.1 fl (81-97); MEAN CORPUSCULAR HEMOGLOBIN 30.5 pg (27-33); MEAN CORPUSCULAR HGB CONC 32.4 g/dl (32-36); MEAN PLATELET VOLUME 9.7 fl (7.4-10.4); MONO % 3.6 % (0-9); PLATELET COUNT 288 K/uL (130-400); RED BLOOD COUNT 3.54 M/uL (3.80-5.40); RED CELL DISTRIBUTION WIDTH 12.7 % (11.5-14.5); WHITE BLOOD COUNT W/O DIFF 10.3 K/uL (4.2-12.2)
[2018-03-22 06:32] LABS: ALBUMIN 3.5 g/dL (4.0-5.0); BILIRUBIN,TOTAL 0.3 mg/dL (0.2-1.0); CREATININE 1.6 mg/dL (0.5-0.9); TOTAL PROTEIN 6.9 g/dL (6.6-8.7)
[2018-03-22] MEDS ORDERED: PANTOPRAZOLE SODIUM 40 MG TABLET PO PRN (07:00)
[2018-03-22] MEDS ORDERED: NOVOLOG FLEXPEN (INSULIN ASPART) 100 UNITS/ML SQ SCH (07:45)
[2018-03-22] MEDS: HUMULIN R 100 UNIT/ML VIAL SQ SCH ×4 (08:43→21:59)
[2018-03-22] MEDS: ENALAPRIL 5 MG TABLET PO SCH (09:14)
[2018-03-22] MEDS: ENOXAPARIN 30 MG/0.3 ML SYR SQ SCH (09:14)
[2018-03-22] MEDS: CYANOCOBALAMIN (VITAMIN B-12) 100 MCG TABLET PO SCH (09:15)
[2018-03-22] MEDS: ASPIRIN 81 MG TABEC PO SCH (09:15)
[2018-03-22] MEDS: GLIPIZIDE 5 MG TABLET PO SCH (09:16)
[2018-03-22] MEDS: DILTIAZEM HCL 120 MG ER CAPSULE PO SCH (09:16)
[2018-03-22] MEDS: BIOTIN 5 MG PO SCH (09:26)
[2018-03-22] MEDS: SITAGLIPTIN PHOSPHATE 25 MG PO SCH (09:30)
[2018-03-22] MEDS ORDERED: FUROSEMIDE IV 20MG/2ML VIAL IVP SCH (10:00)
[2018-03-22] MEDS ORDERED: LEVEMIR FLEXTOUCH 100 UNIT/ML INSULIN PEN SQ ONE (14:55)
[2018-03-22] MEDS: ATORVASTATIN 20 MG TABLET PO SCH (21:22)
--- NOTE | 2018-03-22 21:23 | RADIOLOGY REPORT ---
EXAM: CHEST 2 VIEWS HISTORY: ABDOMINAL PAIN. TECHNIQUE: Two-view chest. COMPARISON: 08/04/2017. FINDINGS: There is mild cardiomegaly without vascular distention. There is no evidence of pneumonia or effusion. No subdiaphragmatic free air is seen. There is focal eventration of the right hemidiaphragm. There are postoperative changes in the epigastrium. IMPRESSION: NO ACUTE INTRATHORACIC PROCESS. JOB NUMBER: [id number] MTDD
[2018-03-22] MEDS ORDERED: LEVEMIR FLEXTOUCH 100 UNIT/ML INSULIN PEN SQ SCH (22:00)
[2018-03-23] MEDS: IPRATROPIUM/ALBUTEROL (0.5MG/3MG) NEB INH SCH ×2 (06:00→10:18)
[2018-03-23] MEDS: LEVOTHYROXINE SODIUM 25 MCG TABLET PO SCH (06:47)
[2018-03-23] MEDS: HUMULIN R 100 UNIT/ML VIAL SQ SCH ×3 (08:10→18:46)
[2018-03-23] MEDS: BIOTIN 5 MG PO SCH (10:10)
[2018-03-23] MEDS: CYANOCOBALAMIN 1000 MCG PO SCH (10:11)
[2018-03-23] MEDS: ENALAPRIL 5 MG TABLET PO SCH (10:35)
[2018-03-23] MEDS: AZITHROMYCIN 500 MG TABLET PO SCH (10:35)
[2018-03-23] MEDS: ENOXAPARIN 30 MG/0.3 ML SYR SQ SCH (10:35)
[2018-03-23] MEDS: ASPIRIN 81 MG TABEC PO SCH (10:36)
[2018-03-23] MEDS: GLIPIZIDE 5 MG TABLET PO SCH (10:36)
[2018-03-23] MEDS: DILTIAZEM HCL 120 MG ER CAPSULE PO SCH (10:36)
[2018-03-23] MEDS: SITAGLIPTIN PHOSPHATE 25 MG PO SCH (10:44)
[2018-03-23] MEDS ORDERED: IPRATROPIUM/ALBUTEROL (0.5MG/3MG) NEB INH PRN (11:13)
[2018-03-23] MEDS: CEFTRIAXONE SODIUM 1 GM in 0.9 % SODIUM CHLORIDE 100ML 100 ML IVPB SCH ×2 (13:29→13:31)
[2018-03-23] MEDS: CYANOCOBALAMIN (VITAMIN B-12) 100 MCG TABLET PO SCH (13:31)
[2018-03-23] MEDS ORDERED: LEVEMIR FLEXTOUCH 100 UNIT/ML INSULIN PEN SQ SCH (22:00)
[2018-03-23] MEDS: ACETAMINOPHEN 325 MG TAB PO PRN (22:03)
[2018-03-23] MEDS: DIPHENHYDRAMINE HCL 25 MG CAPSULE PO PRN (22:04)
[2018-03-23] MEDS: ATORVASTATIN 20 MG TABLET PO SCH (22:04)
[2018-03-24] MEDS: CEFTRIAXONE SODIUM 1 GM in 0.9 % SODIUM CHLORIDE 100ML 100 ML IVPB SCH (01:41)
[2018-03-24] MEDS: LEVOTHYROXINE SODIUM 25 MCG TABLET PO SCH (06:13)
[2018-03-24] MEDS: ENALAPRIL 5 MG TABLET PO SCH ×2 (06:13→12:07)
[2018-03-24] MEDS: HUMULIN R 100 UNIT/ML VIAL SQ SCH ×2 (07:50→12:08)
--- NOTE | 2018-03-24 09:24 | Discharge Note ---
VTE H&P Assessment - Risk for VTE Risk for VTE: Yes Risk Level: Moderate Risk Assessment Date: 04/12/18 Risk Assessment Time: 08:00 VTE Orders Placed or Will Be Placed: Yes Discharge Medications - Discharge Medications Prescriptions: Insulin Detemir [Levemir Flextouch] 10 unit SQ QHS #1 bottle Azithromycin 250 mg PO DAILY #6 tablet Cephalexin [Keflex] 500 mg PO QID #40 cap Furosemide [Lasix] 20 mg PO DAILY #30 tablet Potassium Chloride [Klor-Con] 10 meq PO DAILY #30 tablet.sa Home Medications: Ambulatory Orders Enalapril Maleate [Vasotec] 10 mg PO DAILY 08/04/17 [Last Taken 12/19/17] Levothyroxine Sodium [Synthroid] 25 mcg PO DAILY 08/04/17 [Last Taken 12/19/17] Omeprazole 20 mg PO DAILY PRN 08/04/17 [Last Taken 12/19/17] Loratadine 10 mg PO DAILY PRN 12/19/17 [Last Taken Unknown] Aspirin [Aspir-Low] 81 mg PO DAILY 03/21/18 [Last Taken Unknown] Atorvastatin Calcium 40 mg PO QHS 03/21/18 [Last Taken Unknown] Biotin 5 mg PO DAILY 03/21/18 [Last Taken Unknown] Cyanocobalamin (Vitamin B-12) [Vitamin B-12] 1,000 mcg PO DAILY 03/21/18 [Last Taken Unknown] Diltiazem HCl [Diltiazem ER] 120 mg PO DAILY 03/21/18 [Last Taken Unknown] Glipizide 10 mg PO DAILY 03/21/18 [Last Taken Unknown] Sitagliptin Phosphate [Januvia] 25 mg PO DAILY 03/21/18 [Last Taken Unknown] Acetaminophen [Tylenol 325Mg] 650 mg PO Q4H PRN tablet 03/24/18 [Last Taken Unknown] Azithromycin 250 mg PO DAILY #6 tablet 03/24/18 [Last Taken Unknown] Cephalexin [Keflex] 500 mg PO QID #40 cap 03/24/18 [Last Taken Unknown] Enalapril Maleate [Vasotec] 10 mg PO DAILY tablet 03/24/18 [Last Taken Unknown] Furosemide [Lasix] 20 mg PO DAILY #30 tablet 03/24/18 [Last Taken Unknown] Insulin Detemir [Levemir Flextouch] 10 unit SQ QHS #1 bottle 03/24/18 [Last Taken Unknown] Loratadine [Claritin] 10 mg PO DAILY PRN tablet 03/24/18 [Last Taken Unknown] Potassium Chloride [Klor-Con] 10 meq PO DAILY #30 tablet.sa 03/24/18 [Last Taken Unknown] Sitagliptin Phosphate [Januvia] 25 mg PO DAILY 03/24/18 [Last Taken Unknown] Discharge Note - Date Date of Discharge Note: 03/24/18 Condition: (2) Stable Additional Instructions: follow up with Dr. Hunter on Mar 31 in the AM weight daily and if weight is up 5 pounds in [address] Hunter Prescriptions: Insulin Detemir [Levemir Flextouch] 10 unit SQ QHS #1 bottle Furosemide [Lasix] 20 mg PO DAILY #30 tablet Potassium Chloride [Klor-Con] 10 meq PO DAILY #30 tablet. Referrals: Carloz Hunter D.O. [Primary Care Provider] - Forms: Patient Portal Access Activity at Discharge: Increase Activity as Tolerated
[2018-03-24] MEDS: BIOTIN 5 MG PO SCH (09:31)
[2018-03-24] MEDS: DILTIAZEM HCL 120 MG ER CAPSULE PO SCH (09:31)
[2018-03-24] MEDS: ASPIRIN 81 MG TABEC PO SCH (09:32)
[2018-03-24] MEDS: GLIPIZIDE 5 MG TABLET PO SCH (09:32)
[2018-03-24] MEDS: ENOXAPARIN 30 MG/0.3 ML SYR SQ SCH (09:33)
[2018-03-24] MEDS: SITAGLIPTIN PHOSPHATE 25 MG PO SCH (09:34)
[2018-03-24] MEDS: CYANOCOBALAMIN 1000 MCG PO SCH (09:34)
[2018-03-24] MEDS: AZITHROMYCIN 500 MG TABLET PO SCH (09:35)
[2018-03-24] MEDS ORDERED: FUROSEMIDE 20 MG TABLET PO SCH (10:00)
[2018-03-24] MEDS ORDERED: POTASSIUM CHLORIDE 10 MEQ TAB PO SCH (10:00)
[2018-03-24] MEDS ORDERED: LEVEMIR FLEXTOUCH 100 UNIT/ML INSULIN PEN SQ SCH (22:00)
--- NOTE | 2018-03-25 09:00 | Discharge Summary ---
DATE: DISCHARGE DIAGNOSES: 1. Laryngitis/bronchitis. 2. Elevated brain natriuretic peptide secondary to renal insufficiency. 3. Congestive heart failure ruled out. Echocardiogram is normal. 4. Diabetes mellitus, out of control. 5. Renal insufficiency. 6. Urinary retention. She self-catheterizes 3 times a day. 7. Possible sleep apnea. She had some low pulse ox in the hospital at night; however, that seems to have improved as far as the last respiratory therapist who was working with her. We will schedule an outpatient sleep study. 8. Grieving losing her son because he has metastatic cancer and it sounds like, from what she is telling me, that is pretty close to dying. 9. Urinary tract infection secondary to Klebsiella pneumoniae, being treated with Rocephin and going home on Keflex. ATTENDING PHYSICIAN: Carloz Hunter DO REASON FOR HOSPITALIZATION: Cough and congestion. Seen in the emergency department by Dr. Hampton, admitted to the hospital for congestive heart failure, elevated brain natriuretic peptide. She felt it would be necessary to do serial cardiac enzymes. SIGNIFICANT FINDINGS: WBC 10,300, hemoglobin 10.8, potassium 3.6, sodium 134, chloride 95, BUN 30, creatinine 1.6. Sugars on the day of discharge, her 6 a.m. sugar was 69, her 11:30 sugar was 166. She was started during this hospitalization on Levemir. We will send her home with 10 units at h.s. at 9 p.m. We are advising her to check her sugars before meals. The urine showed too numerous to count WBCs, RBCs 10-15, bacteria 2+. The sensitivities came back and Keflex is sensitive to the organism of Klebsiella pneumoniae. Echocardiogram was done which showed normal ejection fraction and no abnormalities. Cardiac enzymes were negative x3 time points. EKG showing no acute changes, sinus rhythm, incomplete right bundle-branch block, left ventricular hypertrophy. Chest x-ray with no acute intrathoracic process. THERAPY PROVIDED: The patient was started on IV Rocephin and azithromycin. She was diuresed initially in the emergency department and that was stopped. However, weight crept up to a total weight of 181. No edema in the legs. Heart and lungs are good. She is switched over to oral antibiotics, azithromycin 250 mg once a day for 6 days, Keflex 500 four times a day for 10 days. Lasix 20 mg a day and potassium chloride 10 mEq a day. Also, we are adding on Levemir 10 units subcu at h.s. Home medications are enalapril 10 mg daily, levothyroxine 25 mcg daily, omeprazole 20 mg daily, Claritin 10 mg daily, aspirin 81 mg a day, atorvastatin 40 mg a day, biotin 5 mg daily, B12 1000 mcg daily, diltiazem extended release 120 mg daily, glipizide 10 mg daily, Januvia 500 mg daily, Tylenol 325 q.4 h. p.r.n., Levemir 10 units subcu at h.s. at 9 p.m. CONDITION ON DISCHARGE: Much improved. DISCHARGE INSTRUCTIONS: Follow up with Dr. Hunter Saturday next week, 7 days. Watch her weight. If it goes up 5 pounds in 24 hours, she is to contact me. [place]
--- NOTE | 2018-03-26 09:31 | History and Physical Report ---
CHIEF COMPLAINT: Hoarse voice, congestion, cough, feeling bad for about 4 days. HISTORY OF PRESENT ILLNESS: This 77-year-old female has had company from [place]. She came down with cough, congestion, and sore throat approximately 4 days prior to admission. She came to the emergency department and was evaluated by Dr. Dunbar, diagnosed with congestive heart failure because her brain natriuretic peptide was elevated; however, chest x-ray is normal, EKG is normal, and cardiac enzymes are normal. No pedal edema. She was admitted to the hospital with IV Lasix. The patient denied any chest pain. She has never had MIs, strokes, or heart disease in the past. She is a diabetic, type 2. She self-caths because of urinary incontinence through Urology, Dr. Chauhan. She also did have some chest tightness and pressure with coughing. She is admitted for serial cardiac enzymes. PAST MEDICAL HISTORY: Hypercholesterolemia, hypothyroidism, iron deficiency anemia, irritable bowel syndrome, nonrheumatic aortic valve stenosis, primary osteoarthritis involving multiple joints, stage 3 chronic kidney disease, follows with Dr. Hernandez, diabetes, type 2; without insulin use, urinary incontinence requiring self-catheterization 4 times a day. She does have a small amount of edema in her legs when she came into the emergency department. She has ocular migraines. She has rheumatoid arthritis. PAST SURGICAL HISTORY: Gastric bypass, 1982; partial hysterectomy, abdominoplasty, left eye surgery, EGD, colonoscopy, bladder sling. CURRENT MEDICATIONS: 1. Januvia 25 mg daily. 2. Vistaril 25 mg every 6 hours p.r.n. for anxiety. Her son is dying of cancer and just found out about a month ago. Esophageal cancer versus possibly lung cancer. 3. Neurontin. Stopped this recently. 4. Diltiazem ER 120 mg daily. 5. Vitamin B12 1000 mcg daily. 6. Biotin 5 mg daily. 7. Atorvastatin 40 mg daily. 8. Aspirin 81 mg daily. 9. Omeprazole 20 mg daily. 10. Claritin 10 mg daily p.r.n. 11. Levothyroxine 25 mcg daily. 12. Glipizide 10 mg daily. 13. Enalapril 10 mg daily. ALLERGIES: Codeine, gabapentin, nitrates. FAMILY HISTORY: Cancer in the father and mother, brain and lung. Father had diabetes, mother diabetes, brother and sister diabetes, grandparents have diabetes, and heart disease for brothers and sisters. Children have seizure, 1 son has a seizure. SOCIAL HISTORY: Never smoked. No alcohol or drug use. REVIEW OF SYSTEMS: HEENT: Denies any visual problems, hearing. She does have a sore throat, hoarse voice, and congestion. Cardiovascular: No chest pain except when she coughs, and she was wheezing. Gave breathing treatment. Respiratory: She has a cough, congestion. No smoking history. Gastrointestinal: No nausea, vomiting, diarrhea, black stools, or bloody stools. Genitourinary: She has problems with urinary incontinence but no symptoms of dysuria, hematuria, or frequency. Musculoskeletal: She does have arthritis in her joints and has rheumatoid arthritis. Neurological: No CVA, paralysis, or paresthesias. Gynecological: She has had a hysterectomy. No breast cancer. She self-caths 4 times a day. Endocrine: She has diabetes mellitus, type 2; hypothyroidism. No recent changes in her weight or intolerance to either heat or cold, fatigue. Integument: No rash, ulcers, change in moles, or yellow skin. PHYSICAL EXAMINATION: VITAL SIGNS: Height: 5 feet 1 inch. Weight: 175 pounds. Temperature: 97.5. Pulse: 78. Blood Pressure: 142/70. Respiratory Rate: 14. Pulse Oximetry: 94% on room air. HEENT: Pupils are equal, round, and reactive to light and accommodation. Extraocular muscles are intact. Throat is clear. Nose is clear. Tympanic membranes are schmitt. Throat has red spots in the posterior pharynx with white spots. NECK: Supple. No jugular venous distention. No hepatojugular reflex. No carotid bruits. Thyroid is smooth. LUNGS: She has a cough and hoarse voice, bringing up mucous. HEART: Regular rate and rhythm without murmurs, clicks, rubs, or gallops. ABDOMEN: Soft, nontender. No hepatosplenomegaly. No masses. Bowel sounds active. No bruits. EXTREMITIES: No pitting edema. No cyanosis. No clubbing. Full range of motion. Peripheral pulses good. BREASTS: Deferred. GYNECOLOGICAL: Deferred. RECTAL: Deferred. NEUROLOGIC: Cranial nerves II through XII intact. No gross defects. Sensation normal. Strength normal. Deep tendon reflexes good bilaterally. Babinski is negative. MENTAL STATUS: Alert and oriented x3. IMPRESSION: 1. Laryngitis, bronchitis. 2. Elevated brain natriuretic peptide. 3. Possible congestive heart failure. 4. Urinary incontinence. Self-caths 3-4 times a day. 5. Renal insufficiency, moderate. Creatinine is 1.6. BUN is 30. 6. Diabetes mellitus, type 2. 7. Grieving because her son just was diagnosed with cancer. 8. Osteoarthritis and rheumatoid arthritis. 9. Irritable bowel syndrome. 10. Iron deficiency anemia. 11. Hypothyroidism. 12. Hypercholesterolemia. 13. GERD. 14. Glaucoma. 15. Benign essential hypertension. PLAN: IV Rocephin, azithromycin. Discontinue the Lasix. Echocardiogram on Saturday. EKG showing no acute change. Cardiac enzymes x3 are negative. Chest x-ray was negative. MTDD
== END 2018-03-24 13:30 | disposition home or self-care (01) | DRG 204 ==
LOC: ER 12:32 → MEDSURG 16:22 → OBSVTOIN 03-23 08:03
PROVIDERS: ADMIT Emergency Medicine; ATTEND Emergency Medicine
DX: R06.00 Dyspnea, unspecified (principal); E11.9 Type 2 diabetes mellitus without complications; Z79.4 Long term (current) use of insulin; R50.9 Fever, unspecified; I10 Essential (primary) hypertension; E78.00 Pure hypercholesterolemia, unspecified; N28.9 Disorder of kidney and ureter, unspecified; G62.9 Polyneuropathy, unspecified; M06.9 Rheumatoid arthritis, unspecified
CPT/HCPCS: 36416; 71046; 80053; 81001; 82947; 82948; 83880; 84443; 84484; 85027; 85379; 87400; 93005; 93010; 93306; 94640; 96365; 96374; 96375; 99285; J1650; J1940; J2930

== ENCOUNTER 2019-05-16 14:08 | Emergency (ER) | payer MEDICARE ==
[2019-05-16 15:55] LABS: ABSOLUTE NEUTROPHIL COUNT 4.59; BASO % 0.3 % (0-6); EOS % 6.4 % (0-6); GRAN % 59.6 % (47-80); HEMATOCRIT 37.3 % (35.0-47.0); HEMOGLOBIN 11.7 gm/dl (11.6-16.0); LYMPH % 19.1 % (16-45); MEAN CELL VOLUME 93.5 fl (81-97); MEAN CORPUSCULAR HEMOGLOBIN 29.3 pg (27-33); MEAN CORPUSCULAR HGB CONC 31.4 g/dl (32-36); MEAN PLATELET VOLUME 10.5 fl (7.4-10.4); MONO % 14.6 % (0-9); PLATELET COUNT 263 K/uL (130-400); RED BLOOD COUNT 3.99 M/uL (3.80-5.40); RED CELL DISTRIBUTION WIDTH 14.8 % (11.5-14.5); WHITE BLOOD COUNT W/O DIFF 7.7 K/uL (4.2-12.2)
[2019-05-16 16:10] LABS: CREATININE 1.8 mg/dL (0.5-0.9)
--- NOTE | 2019-05-16 16:13 | CT SCAN REPORT ---
EXAMINATION: HEAD WO CONTRAST EXAM DATE: 05/16/2019 4:05 PM TECHNIQUE: Noncontrast axial images were obtained to the brain. INDICATION: dizziness COMPARISON: 08/04/2017, MR 06/04/2015 ENCOUNTER: Not applicable. HAND DOMINANCE: Unknown FINDINGS: Low-attenuation areas in the periventricular and subcortical white matter. The brain parenchyma is o therwise unremarkable. No loss of schmitt-white matter differentiation or sulcal effacement to indicate acute infarction. No evidence of intracranial mass. There is enlargement of the ventricles, sulci, and subarachnoid spaces. No hydrocephalus. There is arterial calcification. No intra-axial or extra-axial fluid collection. No evidence of intracranial hemorrhage. The paranasal sinuses, mastoid air cells, and orbits are unremarkable. Prior bilateral cataract surg vj. The calvarium is intact. IMPRESSION: 1. No CT evidence of intracranial hemorrhage or acute intracranial abnormality. 2. Mild white matter hypoattenuation most commonly represents chronic microvascular ischemic diseas e. 3. Mild cerebral and cerebellar atrophy, consistent with age. Dictated by: JULISA MARTEL MD on 05/16/2019 4:09 PM. .
[2019-05-16 16:24] LABS: URINE APPEARANCE CLOUDY; URINE BILIRUBIN NEGATIVE (NEGATIVE); URINE BLOOD SMALL (NEGATIVE); URINE COLOR YELLOW; URINE GLUCOSE (UA) NEGATIVE (NEGATIVE); URINE KETONE NEGATIVE (NEGATIVE); URINE LEUKOCYTE ESTERASE LARGE (NEGATIVE); URINE NITRITE POSITIVE (NEGATIVE); URINE UROBILINOGEN 0.2 E.U./dL (0.20 - 1.00)
[2019-05-16 16:41] LABS: URINE BACTERIA 1+; URINE EPITHELIAL CELLS 0 - 2 (FEW); URINE RBC 0 - 2 (NONE SEEN)
--- NOTE | 2019-05-16 17:49 | Emergency Department Record ---
History of Present Illness - General Chief Complaint: Dizziness Stated Complaint: DIZZY AND HEAD PAIN Time Seen by Provider: 05/16/19 15:20 Source: Patient Mode of Arrival: Ambulatory Limitations: No limitations - History of Present Illness Initial Comments: pt is reporting shooting pains on the l side of her face that lasts a few seconds. she also feels generally weak MD Complaint: Other Onset/Timin -: Days(s) Timing: Gradual onset Description: Lightheadedness, Nausea History of Same: Yes History of Trauma: No Severity: Moderate Improves With: Remaining still Worsens With: Movement - [place] Coma Scale Eye Response: (4) Open spontaneously Motor Response: (6) Obeys commands Verbal Response: (5) Oriented [place] Total: 15 - Related Data Home Medications Medication Instructions Recorded Confirmed Last Taken Sertraline HCl [Zoloft] 25 mg PO DAILY 05/16/19 05/16/19 1 Day Ago ~05/15/19 Trazodone HCl 50 mg PO QHS 05/16/19 05/16/19 1 Day Ago ~05/15/19 Previous Rx's Medication Instructions Recorded Acetaminophen [Tylenol 325Mg] 650 mg PO Q4H PRN tablet 03/24/18 Enalapril Maleate [Vasotec] 10 mg PO DAILY tablet 03/24/18 Insulin Detemir [Levemir Flextouch] 10 unit SQ QHS #1 bottle 03/24/18 Loratadine [Claritin] 10 mg PO DAILY PRN tablet 03/24/18 Ciprofloxacin HCl [Cipro] 500 mg PO Q12HR #14 tablet 05/16/19 Hydrocodone/Acetaminophen [[place] 0.5 - 1 tab PO TID PRN #7 tab 05/16/19 5mg/325mg] Allergies Allergy/AdvReac Type Severity Reaction Status Date / Time codeine Allergy Unknown PT UNSURE Verified 05/16/19 14:56 OF REACTION gabapentin Allergy Unknown PT UNSURE Verified 05/16/19 14:56 OF REACTION Nitrate Analogues Allergy Unknown PT UNSURE Verified 05/16/19 14:56 OF REACTION Travel Screening - Travel/Exposure Within Last 30 Days Have you traveled within the last 30 days?: No - Travel/Exposure Within Last Year Have you traveled outside the [place] in the last year?: No - Additonal Travel Details Have you been exposed to anyone with a communicable illness?: No - Travel Symptoms Symptom Screening: None Review of Systems Reviewed: No additional complaints except as noted below Constitutional: Reports: As per HPI. Denies: Chills, Fever, Malaise, Night sweats, Weakness, Weight change Eyes: Reports: As per HPI. Denies: Eye discharge, Eye pain, Photophobia, Vision change ENT: Reports: As per HPI. Denies: Congestion, Dental pain, Ear pain, Epistaxis, Hearing loss, Throat pain Respiratory: Reports: As per HPI. Denies: Cough, Dyspnea, Hemoptysis, Stridor, Wheezes Cardiovascular: Reports: As per HPI. Denies: Arrhythmia, Chest pain, Dyspnea on exertion, Edema, Murmurs, Orthopnea, Palpitations, Paroxysmal nocturnal dyspnea, Rheumatic Fever, Syncope Endocrine: Reports: As per HPI. Denies: Fatigue, Heat or cold intolerance, Polydipsia, Polyuria Gastrointestinal: Reports: As per HPI. Denies: Abdominal pain, Constipation, Diarrhea, Hematemesis, Hematochezia, Melena, Nausea, Vomiting Genitourinary: Reports: As per HPI. Denies: Abnormal menses, Discharge, Dyspare unia, Dysuria, Frequency, Hematuria, Incontinence, Retention, Urgency Musculoskeletal: Reports: As per HPI. Denies: Arthralgia, Back pain, Gout, Joint swelling, Myalgia, Neck pain Skin: Reports: As per HPI. Denies: Bruising, Change in color, Change in hair/nails, Lesions, Pruritus, Rash Neurological: Reports: As per HPI. Denies: Abnormal gait, Confusion, Headache, Numbness, Paresthesias, Seizure, Tingling, Tremors, Vertigo, Weakness Psychiatric: Reports: As per HPI. Denies: Anxiety, Auditory hallucinations, Depression, Homicidal thoughts, Suicidal thoughts, Visual hallucinations Hematological/Lymphatic: Reports: As per HPI. 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) Comment:: recently passed out 08/04/17, was in hospital overnight- discovered low hgb - GI Hx GI Disorders: Yes Hx Abdominal Pain: Yes (4 years) Hx Reflux: Yes Hx Nausea/Vomiting: Yes (at times) Hx of Polyps: Yes Comment:: Hx of gastric bypass, diarrhea has improved since stopping neurontin - Hx Genitourinary Disorders: Yes Hx Bladder Problem: Yes (frequent urination) Hx Renal Disease: Yes (insufficiency) Comment:: stage 3 renal disease - ENDOCRINE Hx Endocrine Disorders: Yes Hx Diabetes: Yes Hx Thyroid Disease: Yes - MUSCULOSKELETAL Hx Musculoskeletal Disorders: Yes Hx Arthritis: Yes (RA) Hx Osteoporosis: Yes Comment:: muscle cramps in legs at night at times - PSYCH Hx Psych Problems: Yes Hx Anxiety: Yes Hx Depression: Yes - HEMATOLOGY/ONCOLOGY Hx Hematology/Oncology Disorders: Yes Hx Unexplained Bleeding: Yes (blood in stool few years ago) Hx Blood Transfusions: Yes (08/04/17) Hx Blood Transfusion Reaction: No Comment:: currently low HGB Family Medical History Any Significant Family History?: Yes Hx Cancer: Father, Mother *Cancer Comment: brain, lung Hx Diabetes: Father, Mother, Brother/Sister, Grandparents Hx Heart Disease: Brother/Sister Hx Seizures: Children *Seizure Comment: son Physical Exam - General General Appearance: Alert, Oriented x3, Cooperative, Mild distress - Head Head exam: Normal inspection - Eye Eye exam: Normal appearance, PERRL, EOMI Pupils: Normal accommodation - ENT ENT exam: Normal exam, Mucous membranes moist, Normal external ear exam, Normal orophraynx, Other (tms totally occluded w cerumen) Ear exam: Normal external inspection. negative: External canal tenderness Nasal Exam: Normal inspection. negative: Discharge, Sinus tenderness Mouth exam: Normal external inspection, Tongue normal Teeth exam: Normal inspection. negative: Dental caries Throat exam: Normal inspection. negative: Tonsillar erythema, Tonsillar exudate - Neck Neck exam: Normal inspection, Full ROM. negative: Tenderness - Respiratory Respiratory exam: Normal lung sounds bilaterally. negative: Respiratory distress - Cardiovascular Cardiovascular Exam: Regular rate, Normal rhythm, Normal heart sounds - GI/Abdominal GI/Abdominal exam: Soft, Normal bowel sounds. negative: Tenderness - Rectal Rectal exam: Deferred - exam: Deferred - Extremities Extremities exam: Normal inspection, Full ROM, Normal capillary refill. negative: Tenderness - Back Back exam: Reports: Normal inspection, Full ROM. Denies: Muscle spasm, Rash noted, Tenderness - Neurological Neurological exam: Alert, CN II-XII intact, Normal gait, Oriented X3 - Psychiatric Psychiatric exam: Normal affect, Normal mood - Skin Skin exam: Dry, Intact, Normal color, Warm Course Vital Signs 05/16/19 14:43 Temperature 98.4 F Pulse Rate 81 Respiratory 20 Rate Blood Pressure 111/97 Pulse Ox 95 - Reevaluation(s) Reevaluation #1: 05/16/19 17:58 after irrigation tms visualized and schmitt. pt feels much better. still gets occasional shooting pains, possible trigeminal neuralgia. ct neg for acute Medical Decision Making - Lab Data Result diagrams: 05/16/19 15:00 05/16/19 15:00 Lab Results 05/16/19 05/16/19 05/16/19 Range/Units 15:00 15:00 15:28 WBC 7.7 (4.2-12.2) K/uL RBC 3.99 (3.80-5.40) M/uL Hgb 11.7 (11.6-16.0) gm/dl Hct 37.3 (35.0-47.0) % MCV 93.5 (81-97) fl MCH 29.3 (27-33) pg MCHC 31.4 L (32-36) g/dl RDW 14.8 H (11.5-14.5) % Plt Count 263 (130-400) K/uL MPV 10.5 H (7.4-10.4) fl Gran % 59.6 (47-80) % Lymphocytes % 19.1 (16-45) % Monocytes % 14.6 H (0-9) % Eosinophils % 6.4 H (0-6) % Basophils % 0.3 (0-6) % Absolute Neutrophils 4.59 Sodium 134 L (136-145) mmol/L Potassium 4.4 (3.4-4.5) mmol/L Chloride 96 L (98-107) mmol/L Carbon Dioxide 23.0 (22-29) mmol/L Anion Gap 15.0 (7-16) BUN 28 H (8-23) mg/dL Creatinine 1.8 H (0.5-0.9) mg/dL Estimated GFR 29 mL/min Random Glucose 277 H (74-109) mg/dL Calcium 9.4 (8.8-10.2) mg/dL Urine Color Yellow Urine Appearance Cloudy Urine pH 5.5 (5.0-8.0) Ur Specific [place] 1.010 (1.002-1.030) Urine Protein 30 mg/dl H (NEGATIVE) Urine Glucose (UA) Negative (NEGATIVE) Urine Ketones Negative (NEGATIVE) Urine Blood Small H (NEGATIVE) Urine Nitrite Positive H (NEGATIVE) Urine Bilirubin Negative (NEGATIVE) Urine Urobilinogen 0.2 (0.20 - 1.00) E.U./dL Ur Leukocyte Esterase Large H (NEGATIVE) Urine RBC 0 - 2 (NONE SEEN) Urine WBC Too numerous to cnt (0-2/hpf) Ur Epithelial Cells 0 - 2 (FEW) Urine Bacteria 1+ Disposition Disposition: Discharge Clinical Impression: Trigeminal neuralgia of left side of face, Impacted cerumen of both ears UTI (urinary tract infection) Qualifiers: Urinary tract infection type: acute cystitis Hematuria presence: without hematuria Qualified Code(s): N30.00 - Acute cystitis without hematuria Disposition: Home, Self-Care Condition: (1) Good Instructions: Trigeminal Neuralgia (ED), Urinary Tract Infection in Women (ED) Additional Instructions: follow up with family doctor . return sooner if worse Prescriptions: Ciprofloxacin HCl [Cipro] 500 mg PO Q12HR #14 tablet Hydrocodone/Acetaminophen [[place] 5mg/325mg] 0.5 - 1 tab PO TID PRN #7 tab PRN Reason: Pain - General Forms: Patient Portal Access Quality - Quality Measures Quality Measures: N/A - Blood Pressure Screening Does Patient Have Any of the Following: Active Dx of HTN Blood Pressure Classification: Hypertensive Reading Systolic Measurement: 111 Diastolic Measurement: 97 Screening for High Blood Pressure: Patient Exclusion, Hx of HTN [[id number]]
[2019-05-16] MEDS ORDERED: CIPROFLOXACIN LACTATE/D5W 400 MG/200 ML BAG IVPB ONE (18:10)
[2019-05-16] MEDS ORDERED: 0.9% SODIUM CHLORIDE 250ML BAG IV ONE (18:11)
[2019-05-16] MEDS ORDERED: HYDROCODONE/APAP 5/325MG TABLET PO ONE (18:12)
[2019-05-16] MEDS ORDERED: CEPHALEXIN 500 MG CAPSULE PO STA (19:07)
--- NOTE | 2019-05-16 19:10 | Emergency Department Record ---
History of Present Illness - General Chief Complaint: Dizziness Stated Complaint: DIZZY AND HEAD PAIN Time Seen by Provider: 05/16/19 15:20 Source: Patient Mode of Arrival: Ambulatory Limitations: No limitations - History of Present Illness Onset/Timin -: Days(s) Timing: Gradual onset Description: Lightheadedness, Nausea History of Same: Yes History of Trauma: No Severity: Moderate Improves With: Remaining still Worsens With: Movement - [place] Coma Scale Eye Response: (4) Open spontaneously Motor Response: (6) Obeys commands Verbal Response: (5) Oriented [place] Total: 15 - Related Data Home Medications Medication Instructions Recorded Confirmed Last Taken Sertraline HCl [Zoloft] 25 mg PO DAILY 05/16/19 05/16/19 1 Day Ago ~05/15/19 Trazodone HCl 50 mg PO QHS 05/16/19 05/16/19 1 Day Ago ~05/15/19 Previous Rx's Medication Instructions Recorded Acetaminophen [Tylenol 325Mg] 650 mg PO Q4H PRN tablet 03/24/18 Enalapril Maleate [Vasotec] 10 mg PO DAILY tablet 03/24/18 Insulin Detemir [Levemir Flextouch] 10 unit SQ QHS #1 bottle 03/24/18 Loratadine [Claritin] 10 mg PO DAILY PRN tablet 03/24/18 Cephalexin [Keflex] 500 mg PO BID #14 cap 05/16/19 Hydrocodone/Acetaminophen [[place] 0.5 - 1 tab PO TID PRN #7 tab 05/16/19 5mg/325mg] Allergies Allergy/AdvReac Type Severity Reaction Status Date / Time codeine Allergy Unknown PT UNSURE Verified 05/16/19 14:56 OF REACTION gabapentin Allergy Unknown PT UNSURE Verified 05/16/19 14:56 OF REACTION Nitrate Analogues Allergy Unknown PT UNSURE Verified 05/16/19 14:56 OF REACTION Travel Screening - Travel/Exposure Within Last 30 Days Have you traveled within the last 30 days?: No - Travel/Exposure Within Last Year Have you traveled outside the [place] in the last year?: No - Additonal Travel Details Have you been exposed to anyone with a communicable illness?: No - Travel Symptoms Symptom Screening: None Review of Systems Constitutional: Reports: As per HPI. Denies: Chills, Fever, Malaise, Night sweats, Weakness, Weight change Eyes: Reports: As per HPI. Denies: Eye discharge, Eye pain, Photophobia, Vision change ENT: Reports: As per HPI. Denies: Congestion, Dental pain, Ear pain, Epistaxis, Hearing loss, Throat pain Respiratory: Reports: As per HPI. Denies: Cough, Dyspnea, Hemoptysis, Stridor, Wheezes Cardiovascular: Reports: As per HPI. Denies: Arrhythmia, Chest pain, Dyspnea on exertion, Edema, Murmurs, Orthopnea, Palpitations, Paroxysmal nocturnal dyspnea, Rheumatic Fever, Syncope Endocrine: Reports: As per HPI. Denies: Fatigue, Heat or cold intolerance, Polydipsia, Polyuria Gastrointestinal: Reports: As per HPI. Denies: Abdominal pain, Constipation, Diarrhea, Hematemesis, Hematochezia, Melena, Nausea, Vomiting Genitourinary: Reports: As per HPI. Denies: Abnormal menses, Discharge, Dysp areunia, Dysuria, Frequency, Hematuria, Incontinence, Retention, Urgency Musculoskeletal: Reports: As per HPI. Denies: Arthralgia, Back pain, Gout, Joint swelling, Myalgia, Neck pain Skin: Reports: As per HPI. Denies: Bruising, Change in color, Change in hair/nails, Lesions, Pruritus, Rash Neurological: Reports: As per HPI. Denies: Abnormal gait, Confusion, Headache, Numbness, Paresthesias, Seizure, Tingling, Tremors, Vertigo, Weakness Psychiatric: Reports: As per HPI. Denies: Anxiety, Auditory hallucinations, Depression, Homicidal thoughts, Suicidal thoughts, Visual hallucinations Hematological/Lymphatic: Reports: As per HPI. 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) Comment:: recently passed out 08/04/17, was in hospital overnight- discovered low hgb - GI Hx GI Disorders: Yes Hx Abdominal Pain: Yes (4 years) Hx Reflux: Yes Hx Nausea/Vomiting: Yes (at times) Hx of Polyps: Yes Comment:: Hx of gastric bypass, diarrhea has improved since stopping neurontin - Hx Genitourinary Disorders: Yes Hx Bladder Problem: Yes (frequent urination) Hx Renal Disease: Yes (insufficiency) Comment:: stage 3 renal disease - ENDOCRINE Hx Endocrine Disorders: Yes Hx Diabetes: Yes Hx Thyroid Disease: Yes - MUSCULOSKELETAL Hx Musculoskeletal Disorders: Yes Hx Arthritis: Yes (RA) Hx Osteoporosis: Yes Comment:: muscle cramps in legs at night at times - PSYCH Hx Psych Problems: Yes Hx Anxiety: Yes Hx Depression: Yes - HEMATOLOGY/ONCOLOGY Hx Hematology/Oncology Disorders: Yes Hx Unexplained Bleeding: Yes (blood in stool few years ago) Hx Blood Transfusions: Yes (08/04/17) Hx Blood Transfusion Reaction: No Comment:: currently low HGB Family Medical History Any Significant Family History?: Yes Hx Cancer: Father, Mother *Cancer Comment: brain, lung Hx Diabetes: Father, Mother, Brother/Sister, Grandparents Hx Heart Disease: Brother/Sister Hx Seizures: Children *Seizure Comment: son Physical Exam - General Limitations: No limitations Course Vital Signs 05/16/19 05/16/19 14:43 17:50 Temperature 98.4 F 98.3 F Pulse Rate 81 Pulse Rate [ 70 Pulse Ox Probe] Respiratory 20 18 Rate Blood Pressure 111/97 Blood Pressure 124/65 [Left Arm] Pulse Ox 95 97 Medical Decision Making - Lab Data Result diagrams: 05/16/19 15:00 05/16/19 15:00 Lab Results 05/16/19 05/16/19 05/16/19 Range/Units 15:00 15:00 15:28 WBC 7.7 (4.2-12.2) K/uL RBC 3.99 (3.80-5.40) M/uL Hgb 11.7 (11.6-16.0) gm/dl Hct 37.3 (35.0-47.0) % MCV 93.5 (81-97) fl MCH 29.3 (27-33) pg MCHC 31.4 L (32-36) g/dl RDW 14.8 H (11.5-14.5) % Plt Count 263 (130-400) K/uL MPV 10.5 H (7.4-10.4) fl Gran % 59.6 (47-80) % Lymphocytes % 19.1 (16-45) % Monocytes % 14.6 H (0-9) % Eosinophils % 6.4 H (0-6) % Basophils % 0.3 (0-6) % Absolute Neutrophils 4.59 Sodium 134 L (136-145) mmol/L Potassium 4.4 (3.4-4.5) mmol/L Chloride 96 L (98-107) mmol/L Carbon Dioxide 23.0 (22-29) mmol/L Anion Gap 15.0 (7-16) BUN 28 H (8-23) mg/dL Creatinine 1.8 H (0.5-0.9) mg/dL Estimated GFR 29 mL/min Random Glucose 277 H (74-109) mg/dL Calcium 9.4 (8.8-10.2) mg/dL Urine Color Yellow Urine Appearance Cloudy Urine pH 5.5 (5.0-8.0) Ur Specific [place] 1.010 (1.002-1.030) Urine Protein 30 mg/dl H (NEGATIVE) Urine Glucose (UA) Negative (NEGATIVE) Urine Ketones Negative (NEGATIVE) Urine Blood Small H (NEGATIVE) Urine Nitrite Positive H (NEGATIVE) Urine Bilirubin Negative (NEGATIVE) Urine Urobilinogen 0.2 (0.20 - 1.00) E.U./dL Ur Leukocyte Esterase Large H (NEGATIVE) Urine RBC 0 - 2 (NONE SEEN) Urine WBC Too numerous to cnt (0-2/hpf) Ur Epithelial Cells 0 - 2 (FEW) Urine Bacteria 1+ Disposition Clinical Impression: Trigeminal neuralgia of left side of face, Impacted cerumen of both ears UTI (urinary tract infection) Qualifiers: Urinary tract infection type: acute cystitis Hematuria presence: without hematuria Qualified Code(s): N30.00 - Acute cystitis without hematuria Disposition: Home, Self-Care Condition: (1) Good Instructions: Urinary Tract Infection in Women (ED), Trigeminal Neuralgia (ED) Additional Instructions: follow up with family doctor . return sooner if worse Prescriptions: Cephalexin [Keflex] 500 mg PO BID #14 cap Hydrocodone/Acetaminophen [[place] 5mg/325mg] 0.5 - 1 tab PO TID PRN #7 tab PRN Reason: Pain - General Forms: Patient Portal Access Quality - Quality Measures Quality Measures: N/A - Blood Pressure Screening Does Patient Have Any of the Following: Active Dx of HTN Blood Pressure Classification: Hypertensive Reading Systolic Measurement: 111 Diastolic Measurement: 97 Screening for High Blood Pressure: Patient Exclusion, Hx of HTN [[id number]]
== END 2019-05-16 19:37 | disposition home or self-care (01) ==
LOC: ER 14:08
DX: G50.0 Trigeminal neuralgia (principal); N30.00 Acute cystitis without hematuria; H61.23 Impacted cerumen, bilateral; R11.0 Nausea; I10 Essential (primary) hypertension; R42 Dizziness and giddiness
CPT/HCPCS: 69209; 99284 ×2; 96365; 96361; 85025; 80048; 81001; 70450; J0744